=== PATIENT | female | born 1995 | race Caucasian/White ===

== ENCOUNTER 2021-06-04 10:41 | Emergency (ER) | payer OTHER, SELFPAY ==
[2021-06-04 13:33] VITALS: BP 107/70; PULSE 80; RESP 19; TEMP 36.8; O2SAT 98; BMI 20.9
--- NOTE | 2021-06-04 14:06 | HMH.EDUTC ---
[facility] [place] Disposition Clinical Impression: Otitis media Qualifiers: Otitis media type: unspecified Laterality: left Qualified Code(s): H66.92 - Otitis media, unspecified, left ear Disposition: Home, Self-Care Condition on Discharge: Good Instructions: Middle Ear Infection, Sore Throat, DI for Sinusitis Additional Instructions: *Monitor Temp, Over the counter Motrin or Tylenol as directed/as needed Tylenol every 4 hours and Motrin every 6 hours (as long as your family doctor has told you that you can take it) for fever or pain. and straight to ER if unable to lower temp less than 101.0 after medication given *Warm salt water gargles may help to soothe the throat *Throat Lozenges *Warm fluids like tea with honey may help to soothe the throat *Sleep elevated *Humidifier/Vaporizer *Take medication as prescribed Return if needed Follow up IMMEDIATELY for new or worsening symptoms or no Noticeable improvement over the next 48-72 hours. 911 for difficulty breathing or swallowing Prescriptions: Amoxicillin/Potassium Clav [Amox-Clav 875-125 mg Tablet] 1 tab PO BID #20 tab Transmission Status: Pending to [id number] Referrals: Lorna Buchanan [Primary Care Provider] - As needed Time of Disposition: 14:16 Medical Decision Making - Alonso Inquiry Pt receiving controlled substance: No Alonso was queried for this patient: No Vital Signs: 06/04/21 13:33 Temperature 98.2 F Temperature Source Oral Pulse Rate [Left] 80 Respiratory Rate 19 Blood Pressure [Right Arm] 107/70 L Blood Pressure Mean [Right Arm] 82 02 Sat by Pulse Oximetry 98 [facility] HPI - General Stated complaint: HAN, sore throat, congestion, lt ear pain Time Seen by Provider: 06/04/21 14:06 Mode of Arrival: Ambulatory Source of Information: Patient Limitations: No Limitations Description of Symptoms (Recalled from Triage Doc. by RN): pt c/o a cough, sinus congestion, HAN, and pain in her L ear. HEENT Symptoms (Recalled from RN notes): Yes Resp Symptoms (Recalled from RN notes): Yes Skin Symptoms (Recalled from RN notes): No MS Symptoms (Recalled from RN notes): No Functional Status (Recalled from RN notes): wnl - History of Present Illness Provider Complaint: Patient states that she has been having pain in her left ear, cough, and sinus pain and congestion that has got worse over the last few days States that she was up most of the night last night with pain in her left ear and pressure behind her eyes State that tthis morning she was still not feeling well so she came in - Related Data Previous Rx's Medication Instructions Recorded Amoxicillin/Potassium Clav 1 tab PO BID #20 tab 06/04/21 [Amox-Clav 875-125 mg Tablet] Allergies Allergy/AdvReac Type Severity Reaction Status Date / Time No Known Allergies Allergy Verified 06/04/21 13:36 - Worker's Comp Is this a Worker's Comp case?: No [facility] History - Hepatitis A Screen Drug use history?: No High risk sexual behaviors?: No History of sexually transmitted infection?: No Currently employed?: No Childcare worker?: No Do you have indoor plumbing?: Yes Do you have electricity?: Yes Attestation statement:: This patient has been screened for Hepatitis A risk factors. I have reviewed the patient's past medical history: Yes ROS Obtained: Yes All systems reviewed & no additional complaints, Yes Systems reviewed as appropriate & no additional complaints - Constitutional Constitutional: Reports system reviewed and no additional complaints, except as docu, Reports headache(s) - ENT Ears, Nose, Mouth, and Throat: Reports system reviewed and no additional complaints, except as docu, Reports otalgia, Reports sinus pain, Reports sinus pressure - Cardiovascular Cardiovascular: Reports system reviewed and no additional complaints, except as docu - Respiratory Respiratory: Reports system reviewed and no additional complaints, except as docu, Reports cough Physical Exam - G
[2021-06-04 14:29] VITALS: BP 107/70; PULSE 80; RESP 19; TEMP 36.8
== END 2021-06-04 14:31 | disposition home or self-care (01) ==
PROVIDERS: Emergency Provider Nurse Practitioner; PCP Pediatrics
DX: H66.92 Otitis media, unspecified, left ear (principal)
CPT/HCPCS: 99212; G0463

== ENCOUNTER 2021-07-31 10:12 | Emergency (ER) | payer OTHER, SELFPAY ==
[2021-07-31 11:00] VITALS: BP 107/66; PULSE 79; RESP 18; TEMP 36.9; O2SAT 97; BMI 20.1
--- NOTE | 2021-07-31 11:35 | HMH.EDUTC ---
[facility] [place] Disposition Clinical Impression: Sinusitis Qualifiers: Sinusitis location: unspecified location Chronicity: unspecified Qualified Code(s): J32.9 - Chronic sinusitis, unspecified Disposition: Home, Self-Care Condition on Discharge: Good Instructions: Sinusitis Additional Instructions: ? Start antibiotic today. Be sure to complete entire prescription even if feeling better ? Monitor temp. Tylenol every 4 hours as needed and / or ibuprofen every 6 hours as needed ( As long as your primary care physician has told you that it ok to take both. For fever/aches/pains ER if no less than 101 despite Tylenol or Motrin ? Humidifier/vaporizer or hot steamy shower ? Mucinex during the day for your cough and cough suppressant only at night. Be sure to drink lots of water. Insurance may not cover a prescriptions for mucinex. Might be cheaper to get 400mg tablets and take 2 tablet in the morning, mid-day and evening with lots of water. *Tessalon Perles will not cause drowsiness but use at bedtime to help stop cough so that you may get some rest. *Start steroid today. Helps with inflammation therefore, cough and wheezing. Follow directions on the package. Reviewed side effects. Patient reports taking them before. Follow up IMMEDIATELY for new or worsening of symptoms OR no noticeable improvement over the next 48-72 hours. 911 immediately for any life threatening symptoms such as chest pain or difficulty breathing Prescriptions: Benzonatate [Benzonatate 100mg cap] 100 mg PO Q8HP PRN #30 cap PRN Reason: Cough Transmission Status: Pending to [facility] Amoxicillin/Potassium Clav [Amox-Clav 875-125 mg Tablet] 1 tab PO BID #20 tab Transmission Status: Pending to [facility] methylPREDNISolone [Medrol 4mg tab] 4 mg PO DIRECTED #21 tab Transmission Status: Pending to [facility] Referrals: Lorna Buchanan [Primary Care Provider] - As needed Time of Disposition: 11:43 Medical Decision Making - Alonso Inquiry Pt receiving controlled substance: No Alonso was queried for this patient: No Vital Signs: 07/31/21 11:00 Temperature 98.5 F Temperature Source Oral Pulse Rate [Right Brachial] 79 Respiratory Rate 18 Blood Pressure [Right Arm] 107/66 L Blood Pressure Mean [Right Arm] 79 Blood Pressure Source [Right Arm] Automatic Cuff Blood Pressure Position [Right Arm] Sitting 02 Sat by Pulse Oximetry 97 Oxygen Delivery Method Room Air [facility] HPI - General Stated complaint: sore throat, congestion, cough, hoarseness, HAN Time Seen by Provider: 07/31/21 11:35 Mode of Arrival: Ambulatory Source of Information: Patient Limitations: No Limitations Description of Symptoms (Recalled from Triage Doc. by RN): PATIENT C/O HEADACHE, HEAD CONGESTION, COUGH, SORE THROAT AND FATIGUE SINCE THURSDAY HEENT Symptoms (Recalled from RN notes): Yes Resp Symptoms (Recalled from RN notes): Yes Skin Symptoms (Recalled from RN notes): No MS Symptoms (Recalled from RN notes): No Functional Status (Recalled from RN notes): WNL - History of Present Illness Provider Complaint: Patient states that she hasnt felt well for close to a week States that she has been having sinus pain and pressure, cough, sore throat and drainage States that at times she was coughing up some mucous so she came in to get checked - Related Data Previous Rx's Medication Instructions Recorded Amoxicillin/Potassium Clav 1 tab PO BID #20 tab 07/31/21 [Amox-Clav 875-125 mg Tablet] Benzonatate [Benzonatate 100mg 100 mg PO Q8HP PRN #30 cap 07/31/21 cap] methylPREDNISolone [Medrol 4mg 4 mg PO DIRECTED #21 tab 07/31/21 tab] Allergies Allergy/AdvReac Type Severity Reaction Status Date / Time No Known Allergies Allergy Verified 06/04/21 13:36 - Worker's Comp Is this a Worker's Comp case?: No [facility] History - Hepatitis A Screen Attestation statement:: This patient has been screened for Hepatitis A risk factors.
[2021-07-31 11:45] VITALS: BP 107/66; PULSE 79; RESP 18; TEMP 36.9; O2SAT 97
== END 2021-07-31 11:46 | disposition home or self-care (01) ==
PROVIDERS: Emergency Provider Nurse Practitioner; PCP Pediatrics
DX: J32.9 Chronic sinusitis, unspecified (principal); J02.9 Acute pharyngitis, unspecified
CPT/HCPCS: 99212; G0463

== ENCOUNTER 2022-02-04 10:33 | Emergency (ER) | payer OTHER, SELFPAY ==
[2022-02-04 11:30] VITALS: BP 131/74; PULSE 78; RESP 18; TEMP 36.8; O2SAT 98; BMI 21.3
--- NOTE | 2022-02-04 11:56 | EXP.UTC ---
Discharge Plan Disposition Patient Disposition: Home, Self-Care Condition: Good Prescriptions Prescriptions: New benzonatate 100 mg capsule 100 mg PO TID PRN (Reason: cough) Qty: 30 0RF methylprednisolone [Medrol (Gerard)] 4 mg tablets,dose pack See Rx Instructions .Route .COMPLEX 6 Days Qty: 21 0RF Rx Instructions: taper pack; doxycycline hyclate 100 mg capsule 100 mg PO BID Qty: 20 0RF No Action methylprednisolone 4 MG tablet 4 mg PO DIRECTED Qty: 21 0RF Rx Instructions: Take as directed on package instructions benzonatate 100 MG capsule 100 mg PO Q8HP PRN (Reason: Cough) Qty: 30 0RF amoxicillin-pot clavulanate 1 EACH tablet 1 tab PO BID Qty: 20 0RF Referrals Follow up/Referrals: Lorna Buchanan [Primary Care Provider] - See instructions Activity Restrictions/Add. Instructions Additional Instructions/Restrictions: Start antibiotic today. Be sure to complete entire prescription even if feeling better Monitor temp. Tylenol every 4 hours as needed and / or ibuprofen every 6 hours as needed ( As long as your primary care physician has told you that it ok to take both. For fever/aches/pains ER if no less than 101 despite Tylenol or Motrin Humidifier/vaporizer or hot steamy shower *Tessalon Perles will not cause drowsiness but use at bedtime to help stop cough so that you may get some rest. *Start steroid today. Helps with inflammation therefore, cough and wheezing. Follow directions on the package. Reviewed side effects. Patient reports taking them before. Follow up IMMEDIATELY for new or worsening of symptoms OR no noticeable improvement over the next 48-72 hours. 911 immediately for any life threatening symptoms such as chest pain or difficulty breathing Clinical Impressions Clinical Impression: Sinusitis, Bronchitis Instructions Patient Instructions: DI for Sinusitis, Sinusitis, Acute Bronchitis Discharge ED Provider: Nikki Wallace [facility] General Stated complaint: possible sinus infection Mode of Arrival: Ambulatory Source of Information: Patient Limitations: No Limitations Time Seen by Provider: 02/04/22 11:56 Description of Symptoms (Recalled from Triage Doc. by RN): PATIENT C/O POSSIBLE SINUS INFECTION X 4 DAYS. SHE REPORTS SHE RECENTLY FINISHED AUGMENTIN ON 01/30 HEENT Symptoms (Recalled from RN notes): Yes Resp Symptoms (Recalled from RN notes): No Skin Symptoms (Recalled from RN notes): No MS Symptoms (Recalled from RN notes): No Functional Status (Recalled from RN notes): WNL History of Present Illness Provider Complaint: Patient states that she was seen and treated the the first part of the month for sinus infection with Augmentin but doesnt think it completely cleared her sinus infection States that about 4 days ago she started again with sinus pain and pressure, drainage in the back of her throat and cough that at times she is able to cough up mucous States that if she doesnt get her sinus infection under control she is worried it will move into her chest Related Data Previous Rx's Medication Instructions Recorded amoxicillin 875 mg-potassium 1 tab PO BID #20 tabs 07/31/21 clavulanate 125 mg tablet benzonatate 100 mg capsule 100 mg PO Q8HP PRN Cough #30 caps 07/31/21 methylprednisolone 4 mg tablet 4 mg PO DIRECTED #21 tabs 07/31/21 benzonatate 100 mg capsule 100 mg PO TID PRN cough #30 caps 02/04/22 doxycycline hyclate 100 mg capsule 100 mg PO BID #20 caps 02/04/22 methylprednisolone 4 mg tablets in See Rx Instructions .Route 02/04/22 a dose pack (Medrol (Gerard)) .COMPLEX 6 days #21 tabs Allergies Allergy/AdvReac Type Severity Reaction Status Date / Time No Known Allergies Allergy Verified 06/04/21 13:36 Worker's Comp Is this a Worker's Comp case?: No [facility] 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 (Updated 02/04/22 @ 12:04 by Nikki Wallace APRN) Anxiety Depression Migraine Urinary tract infection
[2022-02-04 12:05] VITALS: BP 131/74; PULSE 78; RESP 18; TEMP 36.8; O2SAT 98
== END 2022-02-04 12:08 | disposition home or self-care (01) ==
PROVIDERS: Emergency Provider Nurse Practitioner; PCP Pediatrics
DX: J01.90 Acute sinusitis, unspecified (principal); R50.9 Fever, unspecified; R09.89 Other specified symptoms and signs involving the circulatory and respiratory systems; R05.9 Cough, unspecified; G43.909 Migraine, unspecified, not intractable, without status migrainosus; F32.A Depression, unspecified; F41.9 Anxiety disorder, unspecified; Z79.52 Long term (current) use of systemic steroids; Z87.440 Personal history of urinary (tract) infections
CPT/HCPCS: 99212; G0463

== ENCOUNTER 2022-05-14 08:41 | Emergency (ER) | payer OTHER, SELFPAY ==
--- NOTE | 2022-05-14 09:07 | EXP.UTC ---
Discharge Plan Disposition Patient Disposition: Home, Self-Care Condition: Good Prescriptions Prescriptions: New rgwjyhrxzxrvzvm-uwjenvaen-CS [Bromfed DM] 2-30-10 mg/5 mL Syrup 5 ml PO Q6H PRN (Reason: Cough) Qty: 240 0RF amoxicillin-pot clavulanate 875-125 mg Tablet 1 tab PO Q12H Qty: 20 0RF methylprednisolone 4 mg Tablets,Dose Pack 4 mg PO DIRECTED Qty: 21 0RF No Action rizatriptan 10 mg tablet 25 mg PO NEEDED PRN (Reason: migraines) Label Comments: TAKE 1 TABLET BY MOUTH ONCE DAILY NEEDED FOR HEADACHE FOR UP TO 1 DOSE. DO NOT EXCEED 3 TABLETS IN 24 HOURS. hydroxyzine HCl 25 mg Tablet 25 mg PO NEEDED PRN (Reason: panic attacks) escitalopram oxalate 10 mg tablet 10 mg PO DAILY Label Comments: TAKE 1 & 1/2 (ONE & ONE-HALF) TABLETS BY MOUTH ONCE DAILY Cimzia 400 mg/2 mL (200 mg/mL x 2) syringe kit 800 mg SQ MONTHLY Referrals Follow up/Referrals: Lorna Buchanan [Primary Care Provider] - See instructions Activity Restrictions/Add. Instructions Additional Instructions/Restrictions: Drink plenty of fluids. Take tylenol or ibuprofen for pain or fever. Take the medications as directed. Follow up with your regular doctor. GO TO THE ER FOR ANY WORSENING SYMPTOMS Clinical Impressions Clinical Impression: Sinusitis, Bronchitis Instructions Patient Instructions: Sinusitis, DI for Sinusitis Discharge ED Provider: Murphy Davalos [facility] [place] HPI General Stated complaint: sinus congestion, sore throat, body aches Time Seen by Provider: 05/14/22 09:07 History of Present Illness Provider Complaint: She states that for the past 2 days she has had sore throat, sinus congestion, cough and chest congestion. Related Data Home Medications Medication Instructions Recorded Confirmed certolizumab pegol 400 mg/2 mL 800 mg SQ MONTHLY psoriatic 05/14/22 05/14/22 (200 mg/mL x2) subcutaneous arthritis syringe kit (Cimzia) escitalopram oxalate 10 mg tablet 10 mg PO DAILY Depression 05/14/22 05/14/22 hydroxyzine HCl 25 mg tablet 25 mg PO NEEDED PRN panic 05/14/22 05/14/22 attacks rizatriptan 10 mg tablet 25 mg PO NEEDED PRN migraines 05/14/22 05/14/22 Previous Rx's Medication Instructions Recorded amoxicillin 875 mg-potassium 1 tab PO Q12H #20 tabs 05/14/22 clavulanate 125 mg tablet htaihzdlsfnllet-srzgevgtmwgsvgy-YT 5 ml PO Q6H PRN Cough #240 mL 05/14/22 2 mg-30 mg-10 mg/5 mL oral syrup (Bromfed DM) methylprednisolone 4 mg tablets in 4 mg PO DIRECTED #21 tabs 05/14/22 a dose pack Allergies Allergy/AdvReac Type Severity Reaction Status Date / Time No Known Allergies Allergy Verified 05/14/22 09:25 [facility] Disclaimer: The information contained in this section may have been updated after the patient was seen, as this information can be updated by other users. 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 Anxiety Depression Migraine Urinary tract infection Surgical History History of appendectomy History of wisdom tooth extraction Social History Smoking Status: Unknown if ever smoked alcohol intake: never current occupational status: other Travel in the last 8 weeks: None ROS Obtained: Yes All systems reviewed & no additional complaints except as documented Constitutional Constitutional: Reports poor appetite Eyes Eyes: Reports system reviewed and no additional complaints, except as documented ENT Ears, Nose, Mouth, and Throat: Reports as per HPI Cardiovascular Cardiovascular: Reports system reviewed and no additional complaints, except as documented and Denies chest pain Respiratory Respiratory: Denies shortness of breath, Denies chest congestion, Reports cough, Denies stridor and Denies wheezing Gastrointestinal Gastrointestingal: Reports system reviewed and no a
[2022-05-14 09:10] VITALS: BP 108/65; PULSE 83; RESP 20; TEMP 37.1; O2SAT 96; BMI 20.9
[2022-05-14 09:18] LABS: UTC Influenza A Antigen Negative (Negative); UTC Strep Screen (Rapid) Negative (Negative)
[2022-05-14 09:19] LABS: UTC Influenza B Antigen Negative (Negative)
[2022-05-14 09:47] VITALS: BP 108/65; PULSE 83; RESP 20; TEMP 37.1; O2SAT 96
== END 2022-05-14 09:40 | disposition home or self-care (01) ==
PROVIDERS: Emergency Provider Nurse Practitioner Family; PCP Pediatrics
DX: J32.9 Chronic sinusitis, unspecified (principal); J40 Bronchitis, not specified as acute or chronic
CPT/HCPCS: 87804; 87880; 99212; 99214; G0463

== ENCOUNTER 2022-05-29 10:48 | Emergency (ER) | payer OTHER, SELFPAY ==
--- NOTE | 2022-05-29 11:22 | EXP.UTC ---
Discharge Plan Disposition Patient Disposition: Home, Self-Care Condition: Good Prescriptions Prescriptions: No Action rizatriptan 10 mg tablet 25 mg PO NEEDED PRN (Reason: migraines) Label Comments: TAKE 1 TABLET BY MOUTH ONCE DAILY NEEDED FOR HEADACHE FOR UP TO 1 DOSE. DO NOT EXCEED 3 TABLETS IN 24 HOURS. hydroxyzine HCl 25 mg Tablet 25 mg PO NEEDED PRN (Reason: panic attacks) escitalopram oxalate 10 mg tablet 10 mg PO DAILY Label Comments: TAKE 1 & 1/2 (ONE & ONE-HALF) TABLETS BY MOUTH ONCE DAILY Cimzia 400 mg/2 mL (200 mg/mL x 2) syringe kit 800 mg SQ MONTHLY Referrals Follow up/Referrals: Lorna Buchanan [Primary Care Provider] - See instructions Activity Restrictions/Add. Instructions Additional Instructions/Restrictions: Go home and rest. It would be best if you rested tomorrow too. Continue your normal medications. Follow up with your regular doctor. GO TO THE ER FOR ANY WORSENING SYMPTOMS OR CONCERN, ESPECIALLY BOWEL OR BLADDER ISSUES, SADDLE AREA NUMBNESS, FEVER, ETC Clinical Impressions Clinical Impression: Migraine with aura Instructions Patient Instructions: Migraine -- Adult, DI for Migraine, Promethazine, Methylprednisolone Injection, Ketorolac Injection Discharge ED Provider: Murphy Davalos [facility] General Stated complaint: Headache, nausea Time Seen by Provider: 05/29/22 11:19 History of Present Illness Provider Complaint: She c/o migraine headache for the past 3 days. She has a history of migraines with aura since she was a child. She usually takes Rizatriptan and it relieves her symptom, but she has taken3 doses of that since her headache began and it has only helped temporarily. Related Data Home Medications Medication Instructions Recorded Confirmed certolizumab pegol 400 mg/2 mL 800 mg SQ MONTHLY psoriatic 05/14/22 05/14/22 (200 mg/mL x2) subcutaneous arthritis syringe kit (Cimzia) escitalopram oxalate 10 mg tablet 10 mg PO DAILY Depression 05/14/22 05/14/22 hydroxyzine HCl 25 mg tablet 25 mg PO NEEDED PRN panic 05/14/22 05/14/22 attacks rizatriptan 10 mg tablet 25 mg PO NEEDED PRN migraines 05/14/22 05/14/22 Allergies Allergy/AdvReac Type Severity Reaction Status Date / Time No Known Allergies Allergy Verified 05/29/22 11:35 [facility] Disclaimer: The information contained in this section may have been updated after the patient was seen, as this information can be updated by other users. 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 Anxiety Depression Migraine Urinary tract infection Surgical History History of appendectomy History of wisdom tooth extraction Social History Smoking Status: Unknown if ever smoked alcohol intake: never current occupational status: other Travel in the last 8 weeks: None ROS Obtained: Yes All systems reviewed & no additional complaints except as documented Constitutional Constitutional: Denies chills and Denies fever(s) Eyes Eyes: Denies eye discharge ENT Ears, Nose, Mouth, and Throat: Denies dizziness, Denies otalgia and Denies sore throat Cardiovascular Cardiovascular: Denies chest pain Respiratory Respiratory: Denies shortness of breath, Denies chest congestion, Denies cough, Denies stridor and Denies wheezing Gastrointestinal Gastrointestingal: Denies nausea or vomiting Musculoskeletal Musculoskeletal: Reports system reviewed and no additional complaints, except as documented and Denies arthralgias Integumentary/Breasts Skin/Breast: Denies rash Neurologic Neurologic: Reports as per HPI, Denies dizziness and Denies paresthesias Allergic/Immunologic Allergic/Immunologic: Denies wheezing Physical Exam General General appearance: alert and in no apparent distress Head Head exam: atraumatic, normocephalic and nor
[2022-05-29 11:30] VITALS: BP 125/77; PULSE 89; RESP 20; TEMP 36.8; O2SAT 98; BMI 21.7
[2022-05-29 12:37] VITALS: BP 125/77; PULSE 89; RESP 20; TEMP 36.8; O2SAT 98
--- NOTE | 2022-05-29 12:38 | PC.NURSE ---
Pt was d/c with father in law to transport home
== END 2022-05-29 12:37 | disposition home or self-care (01) ==
PROVIDERS: Emergency Provider Nurse Practitioner Family; PCP Pediatrics
DX: G43.109 Migraine with aura, not intractable, without status migrainosus (principal); R11.0 Nausea
CPT/HCPCS: 99212; 99213; G0463

== ENCOUNTER 2022-08-24 10:59 | Emergency (ER) | payer OTHER, SELFPAY ==
[2022-08-24 11:15] VITALS: BP 107/63; PULSE 81; RESP 22; TEMP 36.8; O2SAT 98; BMI 22.7
--- NOTE | 2022-08-24 11:15 | XR_ITS ---
PROCEDURE INFORMATION: Exam: XR Right Foot Exam date and time: 08/24/2022 11:11 AM Age: 26 years old Clinical indication: Swelling or effusion of joint; Other: Great toe; Additional info: Pain and swelling in RT great toe TECHNIQUE: Imaging protocol: Radiologic exam of the right foot. Views: 3 or more views. Total images: 3 COMPARISON: No relevant prior studies available. FINDINGS: Bones/joints: No evidence of acute fracture or dislocation. Soft tissues: Soft tissues are within normal limits. IMPRESSION: No evidence of acute fracture or dislocation.
--- NOTE | 2022-08-24 12:07 | EXP.UTC ---
Discharge Plan Disposition Patient Disposition: Home, Self-Care Condition: Good Prescriptions Prescriptions: No Action rizatriptan 10 mg tablet 25 mg PO NEEDED PRN (Reason: migraines) Label Comments: TAKE 1 TABLET BY MOUTH ONCE DAILY NEEDED FOR HEADACHE FOR UP TO 1 DOSE. DO NOT EXCEED 3 TABLETS IN 24 HOURS. hydroxyzine HCl 25 mg Tablet 25 mg PO NEEDED PRN (Reason: panic attacks) escitalopram oxalate 10 mg tablet 10 mg PO DAILY Label Comments: TAKE 1 & 1/2 (ONE & ONE-HALF) TABLETS BY MOUTH ONCE DAILY Cimzia 400 mg/2 mL (200 mg/mL x 2) syringe kit 800 mg SQ MONTHLY Referrals Follow up/Referrals: Lorna Buchanan [Primary Care Provider] - See instructions Activity Restrictions/Add. Instructions Additional Instructions/Restrictions: RETURN FOR ANY NEW OR WORSENING SYMPTOMS FOLLOW U WITH DR BURRIS AT 11 AM TOMORROW Clinical Impressions Clinical Impression: Great toe pain Instructions Patient Instructions: DI for Foot Pain Discharge ED Provider: Liz ([facility])[place] [facility] [place] H[place] General Stated complaint: RT foot big toe pain Mode of Arrival: Ambulatory Source of Information: Patient Limitations: No Limitations Time Seen by Provider: 08/24/22 12:07 Description of Symptoms (Recalled from Triage Doc. by RN): PATIENT C/O PAIN, SWELLING AND BRUISING TO RIGHT BIG TOE THAT STARTED THURSDAY. NO KNOWN INJURY. SHE STATES HER TOE DOES NOT HURT WITH MOVEMENT, BUT IT HURTS WHEN PRESSURE IS APPLIED TO IT HEENT Symptoms (Recalled from RN notes): No Resp Symptoms (Recalled from RN notes): No Skin Symptoms (Recalled from RN notes): No MS Symptoms (Recalled from RN notes): Yes Functional Status (Recalled from RN notes): WNL History of Present Illness Provider Complaint: 26 YR OLD FEMALE PRESENTS WITH C/O PAIN, SWELLING AND BRUISING TO RIGHT BIG TOE THAT STARTED THURSDAY. NO KNOWN INJURY. SHE STATES HER TOE DOES NOT HURT WITH MOVEMENT, BUT IT HURTS WHEN PRESSURE IS APPLIED TO IT. Related Data Home Medications Medication Instructions Recorded Confirmed certolizumab pegol 400 mg/2 mL 800 mg SQ MONTHLY psoriatic 05/14/22 05/14/22 (200 mg/mL x2) subcutaneous arthritis syringe kit (Cimzia) escitalopram oxalate 10 mg tablet 10 mg PO DAILY Depression 05/14/22 05/14/22 hydroxyzine HCl 25 mg tablet 25 mg PO NEEDED PRN panic 05/14/22 05/14/22 attacks rizatriptan 10 mg tablet 25 mg PO NEEDED PRN migraines 05/14/22 05/14/22 Allergies Allergy/AdvReac Type Severity Reaction Status Date / Time No Known Allergies Allergy Verified 05/29/22 11:35 Worker's Comp Is this a Worker's Comp case?: No [facility] Disclaimer: The information contained in this section may have been updated after the patient was seen, as this information can be updated by other users. 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) Smoking Status: Unknown if ever smoked alcohol intake: never current occupational status: other Travel in the last 8 weeks: None ROS Obtained: Yes All systems reviewed & no additional complaints except as documented Constitutional Constitutional: Reports system reviewed and no additional complaints, except as documented Eyes Eyes: Reports system reviewed and no additional complaints, except as documented ENT Ears, Nose, Mouth, and Throat: Reports system reviewed and no additional complaints, except as documented Cardiovascular Cardiovascular: Reports system reviewed and no additional complaints, except as documented Respiratory Respiratory: Reports system reviewed and no additional complaints, except as documented Gastrointestinal Gastrointestingal: Reports system r
[2022-08-24 12:08] VITALS: BP 107/63; PULSE 81; RESP 22; TEMP 36.8; O2SAT 98
== END 2022-08-24 12:17 | disposition home or self-care (01) ==
PROVIDERS: Emergency Provider Nurse Practitioner Family; PCP Pediatrics
DX: M79.674 Pain in right toe(s) (principal); F41.9 Anxiety disorder, unspecified; F32.A Depression, unspecified
CPT/HCPCS: 73630; 99212; 99214; G0463

== ENCOUNTER → 2022-08-25 11:34 | Outpatient (CLI) | payer OTHER, SELFPAY ==
[2022-08-25 12:21] LABS: Basophils % 0.6 % (0.1-2.0); Eosinophils # 0.2 K/mm3 (0.0-0.4); Eosinophils % 3.8 % (0.1-12.0); Hematocrit 37.7 % (37.0-47.0); Hemoglobin 11.8 g/dL (12.2-16.2); Lymphocytes # 1.4 K/mm3 (0.7-4.5); Lymphocytes % 24.9 % (10-50); Mean Corpuscular HGB Conc 31.3 g/dL (31.8-35.4); Mean Corpuscular Hemoglobin 25.3 pg (27.0-31.2); Mean Corpuscular Volume 80.7 fl (81-99); Mean Platelet Volume 8.4 fl (7.4-10.4); Monocytes # 0.3 K/mm3 (0.1-1.0); Monocytes % 5.6 % (1.7-9.3); Neutrophils # 3.7 K/mm3 (1.8-7.8); Neutrophils % 65.1 % (37.0-80.0); Platelet Count 243 K/mm3 (142-424); Red Blood Count 4.67 M/mm3 (4.20-5.40); Red Cell Distribution Width 15.4 % (11.5-17.5); White Blood Count 5.7 K/mm3 (4.8-10.8)
[2022-08-25 12:35] LABS: Chloride 103 mmol/L (98-107)
[2022-08-25 12:36] LABS: Sodium 140 mmol/L (136-145)
[2022-08-25 12:38] LABS: Alanine Aminotransferase 20 U/L (12-78); Aspartate Amino Transferase 29 U/L (14-36); Bilirubin,Unconjugated 0.3 mg/dL (0.0-1.1); Blood Urea Nitrogen 9 mg/dl (7-17); Estimated Glomerular Filt Rate 149 ml/min (>60); GFR (African American) 180 ML/MIN (>60)
[2022-08-25 12:39] LABS: Albumin Level 4.1 g/dl (3.5-5.0); Alkaline Phosphatase 56 U/L (38-126); Bilirubin,Indirect 0.2 mg/dL (0.0-0.9); Bilirubin,Total 0.2 mg/dl (0.2-1.3); Calcium 8.9 mg/dl (8.4-10.2); Carbon Dioxide 28 mmol/L (22.0-30.0); Chol/HDL Ratio 2.2 (1-3.5); Cholesterol 154 mg/dl (140-200); Glucose 94 mg/dl (74-100); HDL Cholesterol 69 mg/dl (40-60); Total Protein,Serum 7.2 g/dl (6.3-8.2); Triglycerides 49 mg/dl (30-150); VLDL Cholesterol 10 mg/dL (0-40)
[2022-08-25 12:42] LABS: Activated Partial Thrombo Time 27.3 seconds (22.8-30.6); INR 0.97 (0.9-1.1); Prothrombin Time 10.5 seconds (10.1-12.5)
[2022-08-25 12:46] LABS: C-Reactive Protein 0.7 mg/L (0-4)
[2022-08-25 12:51] LABS: Direct LDL Cholesterol 70.41 mg/dL (100-129)
--- NOTE | 2022-08-25 12:56 | CA_ITS ---
FINAL REPORT CLINICAL HISTORY: discoloration of right great toe, no injury FINDINGS: Color Doppler, duplex Doppler and compression sonography of the bilateral lower extremities was performed. There is no evidence of deep venous thrombosis from the level of the groin to the calf. The deep veins are patent and compressible. IMPRESSION: No evidence of deep venous thrombosis bilateral lower extremities. Reviewed, Interpreted and Dictated by Rober Lindquist III, MD Transcribed by Ele Velázquez Authenticated and [facility]
[2022-08-25 12:57] LABS: Free T4 (Free Thyroxine) 0.87 ng/dl (0.78-2.19)
[2022-08-25 13:00] LABS: Erythrocyte Sedimentation Rate 11 mm/hr (0-20)
[2022-08-25 13:03] LABS: HCG,Quantitative < 2 mIU/ml (0-5.42)
[2022-08-25 13:12] LABS: Thyroid Stimulating Hormone 0.53 uIU/mL (0.465-4.68)
[2022-08-25 13:24] LABS: Uric Acid 4.2 mg/dl (2.5-6.2)
[2022-08-26 09:04] LABS: RA Latex Turbid. <10.0 IU/mL (<14.0)
[2022-09-01 20:45] LABS: 1,25 Dihydroxy Vitamin D 55 pg/mL (.); 1,25-Dihydroxy, Vitamin D-2 <10 pg/mL (.); 1,25-Dihydroxy, Vitamin D-3 52 pg/mL (.)
[2022-09-07 01:42] LABS: APTT 27.3 sec (.); Anti-Cardiolipin Antibody IgG <10 GPL (.); Anti-Cardiolipin Antibody IgM 10 MPL (.); Beta-2 Glycoprotein I Ab, IgA <10 SAU (.); Beta-2 Glycoprotein I Ab, IgG <10 SGU (.); Beta-2 Glycoprotein I Ab, IgM <10 SMU (.); Hexagonal Phase Phospholipid 9 sec (.); Prothrombin Time 10.5 sec (.); Thrombin Time 16.8 sec (.)
[2022-10-01 00:16] LABS: Antinuclear Antibodies, IFA Positive
== END ==
PROVIDERS: Internal Medicine; PCP Pediatrics; Visit Provider Physician Assistant
DX: R06.00 Dyspnea, unspecified (principal); M79.674 Pain in right toe(s); I77.6 Arteritis, unspecified; L81.9 Disorder of pigmentation, unspecified; I63.9 Cerebral infarction, unspecified
CPT/HCPCS: 80048; 80061; 80076; 82652; 84439; 84443; 84550; 84702; 85025; 85597; 85598; 85610; 85613; 85651; 85670; 85730; 86038; 86140; 86146; 86147; 86431; 93306; 93970

== ENCOUNTER 2023-01-25 09:29 | Emergency (ER) | payer OTHER, SELFPAY ==
[2023-01-25 09:40] VITALS: BP 118/72; PULSE 75; RESP 18; TEMP 36.8; O2SAT 100; BMI 23.7
[2023-01-25 10:10] VITALS: BP 118/72; PULSE 75; RESP 18; TEMP 36.8; O2SAT 100
--- NOTE | 2023-01-25 10:13 | EXP.UTC ---
Discharge Plan Disposition Patient Disposition: Still a Patient Condition: Good Prescriptions Prescriptions: No Action Cimzia 400 mg/2 mL (200 mg/mL x 2) syringe kit 800 mg SQ MONTHLY cetirizine [Zyrtec] 10 mg Tablet 10 mg PO DAILY cod liver oil Capsule 2 cap PO DAILY inositol 500 mg Tablet 3,000 mg PO BID vitamin K2 100 mcg Capsule 100 mcg PO DAILY wfgoohz-mftd-oethl-oreg-capryl 100 mg-150 mg- 50 mg-150 mg Capsule 1 cap PO DAILY zinc citrate 11 mg Tablet,Chewable 33 mg PO DAILY Referrals Follow up/Referrals: Lorna Buchanan [Primary Care Provider] - See instructions Activity Restrictions/Add. Instructions Additional Instructions/Restrictions: Take medication as prescribed FOllow up with your Family Doctor if needed or no improvement Return if needed Straight to ER if any life threatening symptoms Instructions Patient Instructions: DI for Sinusitis, Sinusitis Discharge ED Provider: Nikki Wallace [facility] HPI General Stated complaint: headache,sore throat,sinus congestion Mode of Arrival: Ambulatory Source of Information: Patient Limitations: No Limitations Time Seen by Provider: 01/25/23 10:13 Description of Symptoms (Recalled from Triage Doc. by RN): PATIENT C/O SINUS CONGESTION, SORE THROAT AND HEADACHE SINCE YESTERDAY HEENT Symptoms (Recalled from RN notes): Yes Resp Symptoms (Recalled from RN notes): No Skin Symptoms (Recalled from RN notes): No MS Symptoms (Recalled from RN notes): No Functional Status (Recalled from RN notes): WNL History of Present Illness Provider Complaint: Patient states that she is immunocompromised States that she gets a sinus infection about this time every year States that she has been having some sinus pain and pressure that has got worse over the last couple of days So she wanted to come in and get ahead of it before it got too bad Related Data Home Medications Medication Instructions Recorded Confirmed certolizumab pegol 400 mg/2 mL 800 mg SQ MONTHLY psoriatic 05/14/22 01/25/23 (200 mg/mL x2) subcutaneous arthritis syringe kit (Cimzia) cetirizine 10 mg tablet (Zyrtec) 10 mg PO DAILY 01/25/23 01/25/23 cod liver oil 2 cap PO DAILY 01/25/23 01/25/23 inositol 500 mg tablet 3,000 mg PO BID Anxiety 01/25/23 01/25/23 tumeric 100 mg-zander 150 mg-olive 1 cap PO DAILY 01/25/23 01/25/23 50 mg-oreg 150 mg-caprylate capsule vitamin K2 100 mcg capsule 100 mcg PO DAILY 01/25/23 01/25/23 zinc citrate 11 mg chewable tablet 33 mg PO DAILY 01/25/23 01/25/23 Allergies Allergy/AdvReac Type Severity Reaction Status Date / Time No Known Allergies Allergy Verified 08/25/22 10:54 Worker's Comp Is this a Worker's Comp case?: No [facility] Disclaimer: The information contained in this section may have been updated after the patient was seen, as this information can be updated by other users. 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 Anxiety Depression Migraine Urinary tract infection Surgical History History of appendectomy History of wisdom tooth extraction Social History Smoking Status: Unknown if ever smoked alcohol intake: never current occupational status: other Travel in the last 8 weeks: None ROS Obtained: Yes All systems reviewed & no additional complaints except as documented and Yes Systems reviewed as appropriate & no additional complaints except as documented Constitutional Constitutional: Reports system reviewed and no additional complaints, except as documented and Reports as per HPI ENT Ears, Nose, Mouth, and Throat: Reports system reviewed and no additional complaints, except as documented, Reports as per HPI, Reports sinus pain and Reports sinus pressure Cardiovascular Cardiovascular: Reports system reviewed and no additional complaints, except as documented and Reports as pe
== END 2023-01-25 10:33 | disposition still patient (30) ==
PROVIDERS: Emergency Provider Nurse Practitioner; PCP Pediatrics
DX: J01.90 Acute sinusitis, unspecified (principal); R51.9 Headache, unspecified; R07.0 Pain in throat; R09.81 Nasal congestion; D84.89 Other immunodeficiencies; L40.50 Arthropathic psoriasis, unspecified
CPT/HCPCS: 99212; 99214; G0463

== ENCOUNTER 2023-08-30 14:17 | Emergency (ER) | payer BC, SELFPAY ==
[2023-08-30 14:25] VITALS: BP 141/89; PULSE 85; RESP 19; TEMP 36.4; O2SAT 99; BMI 22.8
--- NOTE | 2023-08-30 14:28 | ED_ITS ---
Discharge Plan Disposition Patient Disposition: Home, Self-Care Condition: Good Prescriptions Prescriptions: New amoxicillin 875 mg tablet 875 mg PO Q12H Qty: 20 0RF jhlpdeoxysaylbk-usiimvjmz-OP [Bromfed DM] 2-30-10 mg/5 mL Syrup 5 ml PO Q6H PRN (Reason: Cough) Qty: 240 0RF methylprednisolone 4 mg Tablets,Dose Pack 4 mg PO DIRECTED 6 Days Qty: 21 0RF Rx Instructions: Take 1 pack as directed for 6 days No Action cetirizine [Zyrtec] 10 mg Tablet 10 mg PO DAILY cod liver oil Capsule 2 cap PO DAILY inositol 500 mg Tablet 3,000 mg PO BID vitamin K2 100 mcg Capsule 100 mcg PO DAILY mztgfksa-pwzo-bbshg-oreg-capry 100 mg-150 mg- 50 mg-150 mg Capsule 1 cap PO DAILY Referrals Follow up/Referrals: Provider,Referral, [Primary Care Provider] - See instructions Activity Restrictions/Add. Instructions Additional Instructions/Restrictions: Drink plenty of fluids. Take tylenol or ibuprofen for pain or fever. Take the medications as directed. Use the ear drops that you were previously prescribed as you were directed. Follow up with your regular doctor. GO TO THE ER FOR ANY WORSENING SYMPTOMS Clinical Impressions Clinical Impression: Sinusitis, Bilateral impacted cerumen Otitis media Qualifiers: Otitis media type: unspecified Laterality: left Qualified Code(s): H66.92 - Otitis media, unspecified, left ear Instructions Patient Instructions: DI for Cerumen Impaction, Sinusitis, DI for Sinusitis Discharge ED Provider: Murphy Davalos [facility] General Stated complaint: congestion, headache Time Seen by Provider: 08/30/23 14:28 History of Present Illness Provider Complaint: She states that for the past 5 days she has had sinus congestion, productive cough, and a sore throat. She has also had bilateral ear fullness and decreased hearing. [facility] and was told she had cerumen impactions in both ears. She was prescribed an ear drop. She states that the ear drops are not helping. Related Data Home Medications Medication Instructions Recorded Confirmed cetirizine 10 mg tablet (Zyrtec) 10 mg PO DAILY 01/25/23 08/30/23 cod liver oil 2 cap PO DAILY 01/25/23 08/30/23 inositol 500 mg tablet 3,000 mg PO BID Anxiety 01/25/23 08/30/23 turmeric 100 mg-zander 150 1 cap PO DAILY 01/25/23 08/30/23 mg-olive 50 mg-oreg 150 mg-capryl capsule vitamin K2 100 mcg capsule 100 mcg PO DAILY 01/25/23 08/30/23 Previous Rx's Medication Instructions Recorded amoxicillin 875 mg tablet 875 mg PO Q12H #20 tabs 08/30/23 donksewknnmwchd-kuznvqjrucstftg-MY 5 ml PO Q6H PRN Cough #240 mL 08/30/23 2 mg-30 mg-10 mg/5 mL oral syrup (Bromfed DM) methylprednisolone 4 mg tablets in 4 mg PO DIRECTED 6 days #21 tabs 08/30/23 a dose pack Allergies Allergy/AdvReac Type Severity Reaction Status Date / Time No Known Allergies Allergy Verified 08/25/22 10:54 [facility] Disclaimer: The information contained in this section may have been updated after the patient was seen, as this information can be updated by other users. 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 Anxiety Depression Migraine Urinary tract infection Surgical History History of appendectomy History of wisdom tooth extraction Social History Smoking Status: Unknown if ever smoked alcohol intake: never current occupational status: other Travel in the last 8 weeks: None ROS Obtained: Yes All systems reviewed & no additional complaints except as documented Constitutional Constitutional: Reports poor appetite Eyes Eyes: Reports system reviewed and no additional complaints, except as documented ENT Ears, Nose, Mouth, and Throat: Reports as per HPI Cardiovascular Cardiovascular: Reports system reviewed and no additional complaints, except as documented and Denies chest pain Respiratory Respiratory: Denies shortness of breath, Denies chest congestion, Reports cough, Denies stridor and Denies wheezing Gastrointestinal Gastrointestingal: Reports system reviewed and no additional complaints, except as documented; Denies abdominal pain, diarrhea or vomiting Musculoskeletal Musculoskeletal: Reports system reviewed and no additional complaints, except as documented and Denies arthralgias Integumentary/Breasts Skin/Breast: Reports system reviewed and no additional complaints, except as documented and Denies rash Neurologic Neurologic: Denies paresthesias Allergic/Immunologic Allergic/Immunologic: Denies wheezing Physical Exam General General appearance: alert and in no apparent distress Eye Eye exam: Present normal appearance, PERRL and EOMI ENT ENT exam: Present mucous membranes moist and normal external ear exam Expanded ENT Exam External ear exam: Present normal external inspection TM/Canal exam: Bilateral TM: cerumen impaction Nose exam: Absent sinus tenderness Nasal speculum exam: Bilateral: normal Mouth exam: Present normal external inspection; Absent drooling Teeth exam: Present normal inspection Throat exam: Present tonsillar erythema and tonsillomegaly Neck Neck exam: Present normal inspection, full ROM and trachea midline; Absent tenderness, lymphadenopathy or thyromegaly Chest Chest inspection: Present normal inspection and symmetric chest wall rise; Absent tenderness or rash Respiratory Respiratory exam: Present normal lung sounds bilaterally; Absent respiratory distress, wheezes, stridor or accessory muscle use Cardiovascular Cardiovascular exam: Present regular rate, normal rhythm and normal heart sounds Abdominal Exam Abdominal exam: Present soft; Absent distention, tenderness, guarding, rebound or rigidity Extremities Exam Extremities exam: Present normal inspection, full ROM and normal capillary refill; Absent tenderness or calf tenderness Back Exam Back exam: Present normal inspection and full ROM; Absent tenderness Neurological Exam Neurological exam: Present alert and oriented X3 Psychiatric Psychiatric exam: Present normal affect and normal mood Skin Skin exam: Present warm, dry, intact and normal color Lymphatic Lymphatic Findings: no adenopathy Medical Decision Making Medical Records Medical records reviewed: No I reviewed the patient's medical records. [place] Inquiry Pt receiving controlled substance: No Procedures Risk/Benefits of Procedure(s) Were Explained: Yes Ear Wax Removal Both Ears: Results: Re-examined: cerumen removed completely TM Examination: TM(s) intact, normal appearance Ear Canal Exam: atraumatic Patient Tolerated Procedure: well and no complications Complications: no problems Technique: ear canal irrigated Additional Comments: She tolerated this well. cerumen impactions were completely removed from both ear canals. Her bilateral tm's are intact after the procedure.
[2023-08-30 14:53] VITALS: BP 141/89; PULSE 85; RESP 19; TEMP 36.4; O2SAT 99
== END 2023-08-30 14:56 | disposition home or self-care (01) ==
PROVIDERS: Emergency Provider Nurse Practitioner Family
DX: H66.92 Otitis media, unspecified, left ear (principal); J01.90 Acute sinusitis, unspecified; H61.23 Impacted cerumen, bilateral; R07.0 Pain in throat; R05.9 Cough, unspecified
CPT/HCPCS: 69209; 99213; 99214; G0463

== ENCOUNTER 2023-11-01 14:32 | Emergency (ER) | payer BC, SELFPAY ==
[2023-11-01] VITALS (8 sets, daily range): BP systolic 103–130; BP diastolic 57–85; PULSE 74–97; RESP 16–18; TEMP 36.9; O2SAT 98–100; BMI 23.3
[2023-11-01 14:40] LABS: Microscopic, Urine URINE MICROSCOPIC (MICROSCOPIC)
--- NOTE | 2023-11-01 14:40 | PC.NURSE ---
Dr. Oh at [facility] for pt eval
--- NOTE | 2023-11-01 14:46 | US_ITS ---
PROCEDURE INFORMATION: Exam: US , Transvaginal Exam date and time: 11/01/2023 4:33 PM Age: 28 years old Clinical indication: complicated by abdominal or pelvic pain; Lower; First trimester (<14 weeks 0 days); Gestational age or lmp: 10w4d; ; Additional info: + home preg, bleeding/pain LABS AND CLINICAL REPORTS: Last menstrual period start date: 08/19/2023 Gestational age (Established): 10 w 4 d Estimated due date (Established): 05/25/2024 TECHNIQUE: Imaging protocol: Real-time transvaginal obstetrical ultrasound of the maternal pelvis with image documentation. Transvaginal imaging was used for better evaluation of the fetus, adnexa, and/or cervix. Total images: [id number] COMPARISON: No relevant prior studies available. FINDINGS: Gestation: Single intrauterine gestation. BIOMETRY: Gestational age (AUA): 6 w 2 d. Average gestational age (AUA) 6 weeks 2 days. Estimated due date (AUA): 06/24/2024. Estimated date of delivery (AUA) 06/24/2024. [place] rump length (CRL): 4.47 mm. EGA (CRL) is 6 w [address] d[address] [place]-rump length measures 4.5 mm. MATERNAL: Right ovary/adnexa: Right ovary measures 3.23 cm x 2.22 cm x 2.51 cm. Right ovarian volume is 9.42 mL. Right ovary measures 3.2 x 2.2 x 2.5 cm. Left ovary/adnexa: Left ovary measures 3.24 cm x 2.55 cm x 2.98 cm. Left ovarian volume is 12.89 mL. Left ovary measures 3.2 x 2.6 x 3.0 cm. Intraperitoneal space: No free fluid. IMPRESSION: 1. Single intrauterine gestation. 2. Average gestational age (AUA) 6 weeks 2 days. 3. No free fluid.
--- NOTE | 2023-11-01 14:47 | ED_ITS ---
Discharge Plan Disposition Patient Disposition: Home, Self-Care Chief Complaint: Vaginal Bleeding Prescriptions Prescriptions: No Action cetirizine [Zyrtec] 10 mg Tablet 10 mg PO DAILY cod liver oil Capsule 2 cap PO DAILY inositol 500 mg Tablet 3,000 mg PO BID vitamin K2 100 mcg Capsule 100 mcg PO DAILY svgdkhwk-jdpy-qxdgc-oreg-capry 100 mg-150 mg- 50 mg-150 mg Capsule 1 cap PO DAILY amoxicillin 875 mg tablet 875 mg PO Q12H Qty: 20 0RF pjvecfheuaocvse-pwnufrwos-UB [Bromfed DM] 2-30-10 mg/5 mL Syrup 5 ml PO Q6H PRN (Reason: Cough) Qty: 240 0RF methylprednisolone 4 mg Tablets,Dose Pack 4 mg PO DIRECTED 6 Days Qty: 21 0RF Rx Instructions: Take 1 pack as directed for 6 days Referrals Follow up/Referrals: Provider,Referral, [Primary Care Provider] - See instructions Bettina Bello DO [Staff Physician] - See instructions Activity Restrictions/Add. Instructions Additional Instructions/Restrictions: Follow-up with POLITICAL ANTHROPOLOGIST as scheduled. You can contact Dr. Bello's office and see if you can be seen in the next 48 hours to have your hCG level redrawn. 48-hour redraw on 11/02 will be most accurate. Call your family doctor to establish care for this visit to the emergency department and schedule follow-up within 48 hours to ensure improvement. If you have any worsening of your condition or any other concerning signs or symptoms, return to the emergency department or your primary care doctor for further evaluation. Clinical Impressions Clinical Impression: Vaginal bleeding during Print Language Print Language: Bulgarian Discharge ED Provider: Anselmo Hairston General Adult HPI <Jesi Oh DO - Last Filed: 11/01/23 14:51> General Chief complaint: Vaginal Bleeding Stated complaint: possibly 7-8 weeks preg, bleeding Time Seen by Provider: 11/01/23 14:35 History of Present Illness HPI narrative: This patient is a 28-year-old female with a history of psoriatic arthritis and migraines presenting to the emergency department for evaluation. Patient is a G1, P0 at estimated 7-8 weeks gestation who has not yet had her initial OB appointment presenting with concern for vaginal bleeding and cramping. She reports that she started spotting on Thursday 2 days ago, but the bleeding has gotten progressively more heavy each day. Today, she states she passed a quarter size clot in the toilet and became concerned. She has also had lower abdominal cramping, but no severe pain. She does complain of a headache at this time, which is not outside of the norm for her. No other concerns noted as of late Related Data Home Medications ?Medication ?Instructions ?Recorded ?Confirmed cetirizine 10 mg tablet (Zyrtec) 10 mg PO DAILY 01/25/23 08/30/23 cod liver oil 2 cap PO DAILY 01/25/23 08/30/23 inositol 500 mg tablet 3,000 mg PO BID Anxiety 01/25/23 08/30/23 turmeric 100 mg-zander 150 1 cap PO DAILY 01/25/23 08/30/23 mg-olive 50 mg-oreg 150 mg-capryl capsule vitamin K2 100 mcg capsule 100 mcg PO DAILY 01/25/23 08/30/23 Previous Rx's ?Medication ?Instructions ?Recorded amoxicillin 875 mg tablet 875 mg PO Q12H #20 tabs 08/30/23 keiqdqgucbgdvbu-yltuafwwmbsxztb-ZO 5 ml PO Q6H PRN Cough #240 mL 08/30/23 2 mg-30 mg-10 mg/5 mL oral syrup (Bromfed DM) methylprednisolone 4 mg tablets in 4 mg PO DIRECTED 6 days #21 tabs 08/30/23 a dose pack Allergies Allergy/AdvReac Type Severity Reaction Status Date / Time No Known Allergies Allergy Verified 08/25/22 10:54 PFSH <Jesi Oh DO - Last Filed: 11/01/23 14:51> PFS Disclaimer: The information contained in this section may have been updated after the patient was seen, as this information can be updated by other users. 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 Depression Anxiety Urinary tract infection Migraine Surgical History History of wisdom tooth extraction History of appendectomy Social History Smoking Status: Never smoker alcohol intake: never current occupational status: other Travel in the last 8 weeks: None <Jesi Oh DO - Last Filed: 11/01/23 14:51> ROS Obtained: Yes All systems reviewed & no additional complaints except as documented Physical Exam <Jesi Oh DO - Last Filed: 11/01/23 14:51> General General appearance: alert and in no apparent distress Head Head exam: atraumatic and normocephalic Eye Eye exam: Present normal appearance, PERRL and EOMI ENT ENT exam: Present normal exam, normal oropharynx, mucous membranes moist and normal external ear exam Neck Neck exam: Present normal inspection, full ROM and trachea midline; Absent tenderness Chest Chest inspection: Present normal inspection and symmetric chest wall rise; Absent tenderness Respiratory Respiratory exam: Present normal lung sounds bilaterally; Absent respiratory distress, wheezes, stridor or accessory muscle use Cardiovascular Cardiovascular exam: Present regular rate and normal rhythm Abdominal Exam Abdominal exam: Present soft; Absent distention, tenderness or guarding Extremities Exam Extremities exam: Present normal inspection, full ROM and normal capillary refill; Absent tenderness or edema Back Exam Back exam: Present normal inspection and full ROM; Absent tenderness Neurological Exam Neurological exam: Present alert, oriented X3, CN II-XII intact and normal gait; Absent motor sensory deficit Psychiatric Psychiatric exam: Present normal affect and normal mood Skin Skin exam: Present warm and dry Medical Decision Making <Jesi Oh, DO - Last Filed: 11/01/23 14:51> Medical Records Medical records reviewed: Yes I reviewed the patient's medical records. Alonso Inquiry Pt receiving controlled substance: No Vital Signs: 11/01/23 14:33 11/01/23 14:40 11/01/23 15:00 Temperature 98.4 F Temperature Source Oral Pulse Rate 88 79 Pulse Rate [Left Radial] 79 Respiratory Rate 16 Blood Pressure 130/85 109/73 L Blood Pressure [Right Arm] 130/85 Blood Pressure Mean [Right Arm] 100 02 Sat by Pulse Oximetry 98 99 100 Oxygen Delivery Method Room Air 11/01/23 15:30 11/01/23 16:01 11/01/23 16:30 Temperature Temperature Source Pulse Rate 97 H 84 76 Pulse Rate [Left Radial] Respiratory Rate Blood Pressure 129/79 103/57 L 103/65 L Blood Pressure [Right Arm] Blood Pressure Mean [Right Arm] 02 Sat by Pulse Oximetry 100 99 100 Oxygen Delivery Method 11/01/23 17:00 Temperature Temperature Source Pulse Rate 76 Pulse Rate [Left Radial] Respiratory Rate Blood Pressure 128/69 Blood Pressure [Right Arm] Blood Pressure Mean [Right Arm] 02 Sat by Pulse Oximetry 99 Oxygen Delivery Method Lab Data Lab results reviewed: Yes I reviewed the patient's lab results. Lab Results 11/01/23 14:34: Urine Color Yellow, Urine Appearance Clear, Urine pH 7.5, Ur Specific Roe 1.010, Urine Protein Negative, Urine Glucose (UA) Negative, Urine Ketones Negative, Urine Blood 3+, Urine Nitrate Negative, Urine Bilirubin Negative, Urine Urobilinogen 0.2, Ur Leukocyte Esterase Negative, Urine RBC 10- 20, Urine WBC None, Ur Squamous Epith Cells 3-5 11/01/23 14:40: WBC 6.6, RBC 4.81, Hgb 13.5, Hct 42.3, MCV 87.9, MCH 28.1, MCHC 31.9, RDW 14.1, Plt Count 260, MPV 8.2, Neut % (Auto) 73.3, Lymph % (Auto) 19.0, [place] % (Auto) 4.6, Eos % (Auto) 2.1, Baso % (Auto) 1.0, Neut # (Auto) 4.8, Lymph # (Auto) 1.2, [place] # (Auto) 0.3, Eos # (Auto) 0.1, Baso # (Auto) 0.1, Sodium 140, Potassium 3.4 L, Chloride 106, Carbon Dioxide 26, Anion Gap 11.4, BUN 6 L, Creatinine 0.40 L, Estimated Creat Clear 217, Estimated GFR 190, Est GFR ( Amer) 230, Glucose 131 H, Calcium 9.2, Total Bilirubin 0.6, AST 31, ALT 23, Alkaline Phosphatase 68, Total Protein 8.0, Albumin 4.7, Globulin 3.3 H, Albumin/Globulin Ratio 1.4, HCG, Quant [id number] H 11/01/23 15:15: Blood Type A Positive, Antibody Screen Negative 11/01/23 14:40 11/01/23 14:40 Orders (Tests/Meds): ED MEDICATIONS Discontinued Medications Generic Name Dose Route Start Last Admin Trade Name Freq PRN Reason Stop Dose Admin Acetaminophen 1,000 mg 11/01/23 15:46 11/01/23 16:21 Acetaminophen 500mg Tab PO 11/01/23 15:47 1,000 mg ONCE ONE Administration ORDERS Category Date Time Status Type and Screen Stat BBK 11/01/23 15:15 Completed POCUS Point of Care (ER Only) Stat Exams 11/01/23 14:35 Completed Complete Blood Count Auto Diff Stat Lab 11/01/23 14:40 Completed Comprehensive Metabolic Panel Stat Lab 11/01/23 14:40 Completed HCG,Quantitative Stat Lab 11/01/23 14:40 Completed UA [Urinalysis and Microscopic] Stat Lab 11/01/23 14:34 Completed US OB transvaginal Stat Ultrasound 11/01/23 14:46 Taken Medical Decision Narrative: In summary, this patient is a 28-year-old female presenting to the Emergency Department for evaluation of cramping and vaginal bleeding in the setting of early . Differential diagnoses considered include but are not limited to ectopic , intrauterine , subchorionic hemorrhage, threatened , missed . Ruling out the most morbid conditions drove assessment. On exam, the patient is sitting upright in bed in no acute distress. Abdominal exam is benign. Bedside ultrasound was performed but was indeterminate. Given this, transvaginal ultrasound was ordered as well as CBC, CMP, quantitative hCG, type and screen, and urinalysis. Patient care signed out to the oncoming provider, Dr. Hairston, pending workup and disposition. <Anselmo Hairston MD - Last Filed: 11/01/23 17:34> Vital Signs: 11/01/23 14:33 11/01/23 14:40 11/01/23 15:00 Temperature 98.4 F Temperature Source Oral Pulse Rate 88 79 Pulse Rate [Left Radial] 79 Respiratory Rate 16 Blood Pressure 130/85 109/73 L Blood Pressure [Right Arm] 130/85 Blood Pressure Mean [Right Arm] 100 02 Sat by Pulse Oximetry 98 99 100 Oxygen Delivery Method Room Air 11/01/23 15:30 11/01/23 16:01 11/01/23 16:30 Temperature Temperature Source Pulse Rate 97 H 84 76 Pulse Rate [Left Radial] Respiratory Rate Blood Pressure 129/79 103/57 L 103/65 L Blood Pressure [Right Arm] Blood Pressure Mean [Right Arm] 02 Sat by Pulse Oximetry 100 99 100 Oxygen Delivery Method 11/01/23 17:00 Temperature Temperature Source Pulse Rate 76 Pulse Rate [Left Radial] Respiratory Rate Blood Pressure 128/69 Blood Pressure [Right Arm] Blood Pressure Mean [Right Arm] 02 Sat by Pulse Oximetry 99 Oxygen Delivery Method Lab Data Lab Results 11/01/23 14:34: Urine Color Yellow, Urine Appearance Clear, Urine pH 7.5, Ur Specific Roe 1.010, Urine Protein Negative, Urine Glucose (UA) Negative, Urine Ketones Negative, Urine Blood 3+, Urine Nitrate Negative, Urine Bilirubin Negative, Urine Urobilinogen 0.2, Ur Leukocyte Esterase Negative, Urine RBC 10- 20, Urine WBC None, Ur Squamous Epith Cells 3-5 11/01/23 14:40: WBC 6.6, RBC 4.81, Hgb 13.5, Hct 42.3, MCV 87.9, MCH 28.1, MCHC 31.9, RDW 14.1, Plt Count 260, MPV 8.2, Neut % (Auto) 73.3, Lymph % (Auto) 19.0, [place] % (Auto) 4.6, Eos % (Auto) 2.1, Baso % (Auto) 1.0, Neut # (Auto) 4.8, Lymph # (Auto) 1.2, [place] # (Auto) 0.3, Eos # (Auto) 0.1, Baso # (Auto) 0.1, Sodium 140, Potassium 3.4 L, Chloride 106, Carbon Dioxide 26, Anion Gap 11.4, BUN 6 L, Creatinine 0.40 L, Estimated Creat Clear 217, Estimated GFR 190, Est GFR ( Amer) 230, Glucose 131 H, Calcium 9.2, Total Bilirubin 0.6, AST 31, ALT 23, Alkaline Phosphatase 68, Total Protein 8.0, Albumin 4.7, Globulin 3.3 H, Albumin/Globulin Ratio 1.4, HCG, Quant [id number] H 11/01/23 15:15: Blood Type A Positive, Antibody Screen Negative Orders (Tests/Meds): ED MEDICATIONS Discontinued Medications Generic Name Dose Route Start Last Admin Trade Name Freq PRN Reason Stop Dose Admin Acetaminophen 1,000 mg 11/01/23 15:46 11/01/23 16:21 Acetaminophen 500mg Tab PO 11/01/23 15:47 1,000 mg ONCE ONE Administration ORDERS Category Date Time Status Type and Screen Stat BBK 11/01/23 15:15 Completed POCUS Point of Care (ER Only) Stat Exams 11/01/23 14:35 Completed Complete Blood Count Auto Diff Stat Lab 11/01/23 14:40 Completed Comprehensive Metabolic Panel Stat Lab 11/01/23 14:40 Completed HCG,Quantitative Stat Lab 11/01/23 14:40 Completed UA [Urinalysis and Microscopic] Stat Lab 11/01/23 14:34 Completed US OB transvaginal Stat Ultrasound 11/01/23 14:46 Taken Medical Decision Narrative: In summary, this patient is a 28-year-old female presenting to the Emergency Department for evaluation of cramping and vaginal bleeding in the setting of early . Differential diagnoses considered include but are not limited to ectopic , intrauterine , subchorionic hemorrhage, threatened , missed . Ruling out the most morbid conditions drove assessment. On exam, the patient is sitting upright in bed in no acute distress. Abdominal exam is benign. Bedside ultrasound was performed but was indeterminate. Given this, transvaginal ultrasound was ordered as well as CBC, CMP, quantitative hCG, type and screen, and urinalysis. Patient care signed out to the oncoming provider, Dr. Hairston, pending workup and disposition. Yovanny: I assumed primary responsibility for this patient after signout from previous physician. On my independent evaluation, patient in no acute distress, tolerating p.o. intake, no acute complaints. Abdomen soft, nontender, nondistended. No flank tenderness. Intermittent to retention of workup with nonactionable CBC, normal hemoglobin at 13.5, platelets normal. Patient's chemistry nonactionable with normal kidney function. hCG elevated at 27,000, urinalysis with blood, contaminated sample. Blood type A+. Bedside ufgau-fn-qphc ultrasound without obvious discernible yolk sac or fetus. Transvaginal ultrasound with fetus estimated gestational age just over 6 weeks, amnion present. Because patient at baseline without signs or symptoms of clinical decompensation, deemed appropriate for discharge. Results were relayed to patient who voiced understanding and were agreeable to outpatient management and follow up. I discussed my clinical impression with patient and answered all questions. At this time, the evidence for any other entities in the differential is insufficient to warrant any further testing or ED observation. This was explained as well. Advisory was given that persistent or worsening symptoms require further evaluation. I confirmed the understanding of this discussion. Procedures <Jesi Oh, DO - Last Filed: 11/01/23 14:51> Limited Ultrasound Findings:: Limited OB ultrasound Indication: Positive home test, vaginal bleeding, pelvic pain Identified structures: Uterus, pouch of Sukhdev Findings: Uterus: Unable to visualize definitive IUP Cul de sac: No free fluid Impression: -IUP: Indeterminate -Ectopic : Indeterminate -Free fluid: Absent Images were saved to permanent archive The study was technically adequate CPT Transabdominal: 59565-25 This study was performed by me, and I personally interpreted all images/videos. Based on my clinical judgement, these images were adequate and did not necessitate further imaging. Critical Care <Jesi Oh, DO - Last Filed: 11/01/23 14:51> Critical Care Time Critical Care Time: No
[2023-11-01 14:52] LABS: Appearance,Urine CLEAR (Clear); Bilirubin,Urine Negative (Negative); Blood, Urine 3+ (Negative); Color,Urine YELLOW (Yellow); Glucose,Urine (UA) Negative (Negative); Ketones,Urine Negative (Negative); Leukocyte Esterase,Urine Negative (Negative); Nitrate,Urine Negative (Negative); PH,Urine 7.5 (5.0-8.5); Protein,Urine Negative (Negative); Urobilinogen,Urine 0.2 EU/dl (0.2)
[2023-11-01 15:00] LABS: Basophils # 0.1 K/mm3 (0-0.2); Eosinophils # 0.1 K/mm3 (0.0-0.4); Eosinophils % 2.1 % (0.1-12.0); Hematocrit 42.3 % (37.0-47.0); Hemoglobin 13.5 g/dL (12.2-16.2); Lymphocytes # 1.2 K/mm3 (0.7-4.5); Mean Corpuscular HGB Conc 31.9 g/dL (31.8-35.4); Mean Corpuscular Hemoglobin 28.1 pg (27.0-31.2); Mean Corpuscular Volume 87.9 fl (81-99); Mean Platelet Volume 8.2 fl (7.4-10.4); Monocytes # 0.3 K/mm3 (0.1-1.0); Monocytes % 4.6 % (1.7-9.3); Neutrophils # 4.8 K/mm3 (1.8-7.8); Neutrophils % 73.3 % (37.0-80.0); Platelet Count 260 K/mm3 (142-424); Red Blood Count 4.81 M/mm3 (4.20-5.40); Red Cell Distribution Width 14.1 % (11.5-17.5); White Blood Count 6.6 K/mm3 (4.8-10.8)
[2023-11-01 15:13] LABS: Albumin Level 4.7 g/dl (3.5-5.0); Chloride 106 mmol/L (98-107); Potassium 3.4 mmoL/L (3.5-5.1); Sodium 140 mmol/L (136-145)
[2023-11-01 15:16] LABS: Alanine Aminotransferase 23 U/L (12-78); Albumin/Globulin Ratio 1.4 (1.1-1.8); Alkaline Phosphatase 68 U/L (38-126); Anion Gap 11.4 mEq/L (5-15); Aspartate Amino Transferase 31 U/L (14-36); Bilirubin,Total 0.6 mg/dl (0.2-1.3); Blood Urea Nitrogen 6 mg/dl (7-17); Calcium 9.2 mg/dl (8.4-10.2); Carbon Dioxide 26 mmol/L (22.0-30.0); Creatinine Clearance Estimated 217 mL/min (50-200); Estimated Glomerular Filt Rate 190 ml/min (>60); GFR (African American) 230 ML/MIN (>60); Globulin 3.3 g/dL (1.3-3.2); Glucose 131 mg/dl (74-100)
[2023-11-01 15:58] LABS: HCG,Quantitative 27000 mIU/ml (0-5.42)
[2023-11-01] MEDS: ACETAMINOPHEN 500MG TAB 1000 MG PO (16:21)
--- NOTE | 2023-11-01 16:40 | PC.NURSE ---
patient gone to US at this time.
--- NOTE | 2023-11-01 16:58 | PC.NURSE ---
pt returned from u/s
--- NOTE | 2023-11-01 16:58 | PC.NURSE ---
patient back in room at this time.
--- NOTE | 2023-11-01 17:40 | PC.NURSE ---
Dr. Hairston at BS for pt eval
== END 2023-11-01 17:54 | disposition home or self-care (01) ==
PROVIDERS: Emergency Medicine; Emergency Provider Emergency Medicine
DX: O20.9 Hemorrhage in early pregnancy, unspecified (principal); E87.6 Hypokalemia; R25.2 Cramp and spasm; Z3A.01 Less than 8 weeks gestation of pregnancy
CPT/HCPCS: 36415; 76817; 80053; 81001; 84702; 85025; 86850; 99284

== ENCOUNTER 2023-11-02 03:49 | Emergency (ER) | payer BC, SELFPAY ==
[2023-11-02 03:50] VITALS: BP 127/87; PULSE 101; RESP 18; TEMP 36.9; O2SAT 99; BMI 23.3
[2023-11-02 04:12] LABS: Basophils # 0.1 K/mm3 (0-0.2); Basophils % 0.7 % (0.1-2.0); Eosinophils # 0.2 K/mm3 (0.0-0.4); Eosinophils % 1.7 % (0.1-12.0); Hematocrit 39.3 % (37.0-47.0); Hemoglobin 12.3 g/dL (12.2-16.2); Lymphocytes # 1.4 K/mm3 (0.7-4.5); Lymphocytes % 13.2 % (10-50); Mean Corpuscular HGB Conc 31.2 g/dL (31.8-35.4); Mean Corpuscular Hemoglobin 27.5 pg (27.0-31.2); Mean Corpuscular Volume 88.2 fl (81-99); Mean Platelet Volume 8.2 fl (7.4-10.4); Monocytes # 0.5 K/mm3 (0.1-1.0); Monocytes % 4.3 % (1.7-9.3); Neutrophils # 8.4 K/mm3 (1.8-7.8); Neutrophils % 80.1 % (37.0-80.0); Platelet Count 291 K/mm3 (142-424); Red Blood Count 4.45 M/mm3 (4.20-5.40); Red Cell Distribution Width 14.1 % (11.5-17.5); White Blood Count 10.5 K/mm3 (4.8-10.8)
--- NOTE | 2023-11-02 04:12 | ED_ITS ---
Discharge Plan Disposition Patient Disposition: Admitted Condition: Good Chief Complaint: Vaginal Bleeding Prescriptions Prescriptions: No Action cetirizine [Zyrtec] 10 mg Tablet 10 mg PO DAILY cod liver oil Capsule 2 cap PO DAILY inositol 500 mg Tablet 3,000 mg PO BID vitamin K2 100 mcg Capsule 100 mcg PO DAILY cpdrjcfc-ibtr-cwtzx-oreg-capry 100 mg-150 mg- 50 mg-150 mg Capsule 1 cap PO DAILY amoxicillin 875 mg tablet 875 mg PO Q12H Qty: 20 0RF mohtgxioplgcsjv-gwwctegkp-PI [Bromfed DM] 2-30-10 mg/5 mL Syrup 5 ml PO Q6H PRN (Reason: Cough) Qty: 240 0RF methylprednisolone 4 mg Tablets,Dose Pack 4 mg PO DIRECTED 6 Days Qty: 21 0RF Rx Instructions: Take 1 pack as directed for 6 days Clinical Impressions Clinical Impression: Vaginal bleeding affecting early Print Language Print Language: Telugu Discharge ED Provider: Daquan Pereira General Adult HPI General Chief complaint: Vaginal Bleeding Stated complaint: 6 weeks bleeding and cramping Time Seen by Provider: 11/02/23 03:55 Mode of Arrival: Ambulatory Source of Information: Patient Limitations: No Limitations Description of Symptoms (Recalled from ER Triage Doc. by RN): Pt 6w2d with c/o vaginal bleeding and cramping since thursday, worsening since 0 last night. Pt reports soaking through 5 pads with bright red blood since 2199. Pt reports occassional blood clots. Pt states she took excederin for a migraine at 1830 last night. Pt was seen here around 1400 yesterday for c/o vaginal bleeding and cramping as well. History of Present Illness HPI narrative: Otherwise healthy 28-year-old female who was identified to be 6 weeks 2 days on an ultrasound less than 12 hours ago presents to the ER for complaints of vaginal bleeding and cramping in the last few days, worsening since 10 PM. Patient reports soaking through 5 pads in 5 hours and passing clots up to the size of a quarter. Patient states she had severe migraine last night and took an Excedrin around 6:30 PM. She is concerned the aspirin and that medication could be exacerbating her symptoms. Patient had been evaluated in the ER approximately 12 hours prior to this visit. She had been discharged in stable condition with return precautions and follow-up with her OB. Her hCG at that time was 27,000. Patient is concerned for miscarriage. She is G1, P0. LMP 08/19/2023. Patient has had mild nausea but no vomiting. ROS otherwise negative. Patient reports she takes a as well as a few supplements that include vitamin B6, B12, and frankincense essential oil. Related Data Home Medications ?Medication ?Instructions ?Recorded ?Confirmed cetirizine 10 mg tablet (Zyrtec) 10 mg PO DAILY 01/25/23 08/30/23 cod liver oil 2 cap PO DAILY 01/25/23 08/30/23 inositol 500 mg tablet 3,000 mg PO BID Anxiety 01/25/23 08/30/23 turmeric 100 mg-zander 150 1 cap PO DAILY 01/25/23 08/30/23 mg-olive 50 mg-oreg 150 mg-capryl capsule vitamin K2 100 mcg capsule 100 mcg PO DAILY 01/25/23 08/30/23 Previous Rx's ?Medication ?Instructions ?Recorded amoxicillin 875 mg tablet 875 mg PO Q12H #20 tabs 08/30/23 xgifmqycuxdulch-iqaudonnflgadiv-CK 5 ml PO Q6H PRN Cough #240 mL 08/30/23 2 mg-30 mg-10 mg/5 mL oral syrup (Bromfed DM) methylprednisolone 4 mg tablets in 4 mg PO DIRECTED 6 days #21 tabs 08/30/23 a dose pack Allergies Allergy/AdvReac Type Severity Reaction Status Date / Time No Known Allergies Allergy Verified 08/25/22 10:54 [facility] Disclaimer: The information contained in this section may have been updated after the patient was seen, as this information can be updated by other users. 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 Depression Anxiety Urinary tract infection Migraine Surgical History History of wisdom tooth extraction History of appendectomy Social History Smoking Status: Never smoker alcohol intake: never current occupational status: other Travel in the last 8 weeks: None ROS Obtained: Yes All systems reviewed & no additional complaints except as documented Positive ROS per HPI Physical Exam General General appearance: alert and in no apparent distress Head Head exam: atraumatic and normocephalic Eye Eye exam: Present PERRL and EOMI ENT ENT exam: Present mucous membranes moist Neck Neck exam: Present normal inspection and full ROM Chest Chest inspection: Present symmetric chest wall rise Respiratory Respiratory exam: Present normal lung sounds bilaterally; Absent respiratory distress, wheezes or stridor Cardiovascular Cardiovascular exam: Present normal rhythm and tachycardia Abdominal Exam Abdominal exam: Present soft and tenderness (Mild lower abdominal tenderness); Absent distention, guarding, rebound or rigidity Extremities Exam Extremities exam: Present full ROM Neurological Exam Neurological exam: Present alert and oriented X3; Absent motor sensory deficit Psychiatric Psychiatric exam: Present normal affect and normal mood Skin Skin exam: Present warm and dry Medical Decision Making Medical Records Medical records reviewed: Yes I reviewed the patient's medical records. MR Comment: Transvaginal ultrasound yesterday demonstrated single intrauterine gestation with an estimated age of 6 weeks and 2 days Alonso Inquiry Pt receiving controlled substance: No Vital Signs: 11/02/23 03:50 Temperature 98.4 F Temperature Source Oral Pulse Rate [Left Radial] 101 H Respiratory Rate 18 Blood Pressure [Right Arm] 127/87 Blood Pressure Mean [Right Arm] 100 Blood Pressure Source [Right Arm] Automatic Cuff Blood Pressure Position [Right Arm] Sitting 02 Sat by Pulse Oximetry 99 Oxygen Delivery Method Room Air Orders (Tests/Meds): ORDERS Category Date Time Status CBC w/Auto Diff [Complete Blood Count Auto Diff] Stat Lab 11/02/23 04:05 Received CMP [Comprehensive Metabolic Panel] Stat Lab 11/02/23 04:05 Received PT INR [Prothrombin Time INR] Stat Lab 11/02/23 04:05 Received Medical Decision Narrative: In summary, this 28-year-old female presents to the emergency department today with vaginal bleeding, cramping in the setting of early . On initial evaluation patient is mildly tachycardic but otherwise hemodynamically stable, afebrile, mild lower abdominal tenderness to palpation without rebound or guarding. Remainder of exam benign. Differential diagnosis includes but is not limited to miscarriage, subchorionic hemorrhage, I considered ectopic however this was ruled out on transvaginal ultrasound 12 hours ago, considered UTI or asymptomatic bacteriuria however patient had negative UA on her workup 12 hours ago, also considered anemia and acute blood loss. Patient's blood type is a positive. Based on these concerns, I ordered CBC, CMP, PT/INR. Labs personally reviewed demonstrate increase in WBCs now 10.5, decrease in patient's hemoglobin to 12.3, previously 13.5 approximately 12 hours prior. Platelets 291, PT/INR normal, CMP with trace hypokalemia, no findings of kidney or liver dysfunction. Repeat hCG is not indicated at this time given the short amount of time from her previous test. With the drop in patient's hemoglobin and her mild tachycardia with symptoms of bleeding through a pad every hour, I discussed this case with OB on-call, Dr. Castillo at this time recommends any pain medication that the pain would like since she believes this is likely a miscarriage. She also recommends IV fluids and admission to OB for continued monitoring and possibly a procedure if needed to slow bleeding. I discussed this with the patient. She is amenable to admission. She states she does not need any pain medications at this time. LR ordered. Patient admitted in stable condition. Critical Care Critical Care Time Critical Care Time: No
[2023-11-02 04:19] LABS: Chloride 107 mmol/L (98-107)
[2023-11-02 04:20] LABS: Albumin Level 4.5 g/dl (3.5-5.0); Potassium 3.3 mmoL/L (3.5-5.1); Sodium 137 mmol/L (136-145)
[2023-11-02 04:22] LABS: Blood Urea Nitrogen 4 mg/dl (7-17); Creatinine Clearance Estimated 174 mL/min (50-200); Estimated Glomerular Filt Rate 147 ml/min (>60); GFR (African American) 178 ML/MIN (>60)
[2023-11-02 04:23] LABS: Alanine Aminotransferase 20 U/L (12-78); Albumin/Globulin Ratio 1.4 (1.1-1.8); Alkaline Phosphatase 82 U/L (38-126); Anion Gap 12.3 mEq/L (5-15); Aspartate Amino Transferase 28 U/L (14-36); Bilirubin,Total 0.6 mg/dl (0.2-1.3); Calcium 9.1 mg/dl (8.4-10.2); Carbon Dioxide 21 mmol/L (22.0-30.0); Globulin 3.3 g/dL (1.3-3.2); Glucose 108 mg/dl (74-100); Total Protein,Serum 7.8 g/dl (6.3-8.2)
[2023-11-02 04:24] LABS: INR 0.97 (0.9-1.1); Prothrombin Time 10.9 seconds (10.1-12.5)
--- NOTE | 2023-11-02 04:35 | PC.NURSE ---
report called to [facility]
[2023-11-02] MEDS: LACTATED RINGERS 1000ML 1,000 ML 999 ML IV (04:37)
--- NOTE | 2023-11-02 04:40 | PC.NURSE ---
Pt arrived to Unit via wheelchair. Patient will remain in room 279 for observation
[2023-11-02 04:46] VITALS: BP 113/93; PULSE 96; RESP 16; TEMP 36.6; O2SAT 100
[2023-11-02 04:50] VITALS: O2SAT 98
[2023-11-02 04:56] VITALS: BP 105/58; PULSE 77; RESP 16; TEMP 36.7; O2SAT 98; BMI 23.3
--- NOTE | 2023-11-02 05:50 | PC.NURSE ---
Pt up to bathroom, patient reports quater sized amount of bleeding on pad. Bleeding is slowing down and patient denies pain at this time
--- NOTE | 2023-11-02 06:06 | PC.NURSE ---
Dr. Tabares calling to check in on patient. Report given on patient status. New orders see MAR. Read back and verified. Order recieved for repeat CBC and Beta Quant levels. Read back and verified.
--- NOTE | 2023-11-02 06:11 | US_ITS ---
PROCEDURE: US OB TRANSVAGINAL CLINICAL INDICATION: vaginal bleeding during first trimester COMPARISON: US OB TRANSVAGINAL from 11/01/2023 FINDINGS: Transvaginal sonographic images of the pelvis were obtained. From her last menstrual period she is 10weeks. The previously described intrauterine gestational sac today is absent. The endometrium measures 7.1 mm. There appears to be a small amount of blood clot within the endometrial cavity. There appears to be tissue within the cervix measuring 3.3 cm cm x 0.7 cm. heart tones are absent. Yolk sac is absent. The right ovary is seen and appears polycystic with multiple small peripheral follicles. The left ovary is seen and appears polycystic with multiple small peripheral follicles. There is no fluid in the cul-de-sac. IMPRESSION: 1. The previously described intrauterine gestational sac is absent today. 2. heart tones are absent today and no fetus is seen. 3. There appears to be persistent clot or tissue within the cervix. 4. The endometrium is thin and there may be a small amount of clot in the endometrial cavity. 5. Both ovaries are seen appear polycystic. 6. No fluid in the cul-de-sac. Dictated by: Cody Vuong MD 11/02/2023 17:00 Cody Vuong MD in OV 11/02/2023 17:00
[2023-11-02 07:10] LABS: Eosinophils # 0.1 K/mm3 (0.0-0.4); Lymphocytes # 1.3 K/mm3 (0.7-4.5); Monocytes # 0.4 K/mm3 (0.1-1.0); Neutrophils # 6.6 K/mm3 (1.8-7.8); White Blood Count 8.4 K/mm3 (4.8-10.8)
[2023-11-02 07:24] LABS: Basophils # 0.1 K/mm3 (0-0.2); Basophils % 0.6 % (0.1-2.0); Eosinophils % 0.7 % (0.1-12.0); Hematocrit 35.9 % (37.0-47.0); Mean Corpuscular HGB Conc 30.6 g/dL (31.8-35.4); Mean Corpuscular Hemoglobin 26.9 pg (27.0-31.2); Mean Corpuscular Volume 87.9 fl (81-99); Mean Platelet Volume 8.5 fl (7.4-10.4); Monocytes % 4.2 % (1.7-9.3); Neutrophils % 78.4 % (37.0-80.0); Platelet Count 261 K/mm3 (142-424); Red Blood Count 4.09 M/mm3 (4.20-5.40); Red Cell Distribution Width 14.1 % (11.5-17.5)
--- NOTE | 2023-11-02 07:25 | PC.NURSE ---
Pt. to U/S via wheelchair accompanied by U/S staff.
[2023-11-02 07:36] LABS: HCG,Quantitative 14103 mIU/ml (0-5.42)
--- NOTE | 2023-11-02 07:46 | PC.NURSE ---
Pt. back into room 279 via wheelchair, accompanied by U/S staff.
--- NOTE | 2023-11-02 08:36 | P.HPDS_ITS ---
General Admission date:: 11/02/23 Discharge date: 11/02/23 *Admission Date: 11/02/23 *Chief complaint: vaginal bleeding in *History of present illness: Mrs Yue Leung is a very pleasant 28 yo at 7w6d admitted to [facility] L&D for observation for vaginal bleeding in early . LMP 09/08/23. She started spotting on Thursday, 10/30. She went to the ED yesterday afternoon secondary to increased light bleeding and cramping. Beta hcg quant 27,000; pelvic ultrasound demonstrated SIUP at 6w2d, no yolk sac or FHR noted. She was discharged home with follow-up. However, bleeding and cramping increased around 2200 last night, 11/01/23. She returned to the ED. Hgb decreased to 12.3 from 13.5. She had mild tachycardia, BP normotensive. No fever/chills, chest pain or shortness of breath. No lightheadedness/dizziness. Her and her have been wanting to get but not actively trying but not preventing. She is paying attention to her body and focusing more on natural family planning. She is not on hormonal contraception. She has history of psoriatic arthritis but stopped all medicine at the beginning of 2023. She is following with a Meteorological Equipment Repairer and is successfully controlling her symptoms. She is taking a PNV. She admits since admission a few hours ago bleeding has slowed down and cramping has almost completely resolved. [facility] Disclaimer: The information contained in this section may have been updated after the patient was seen, as this information can be updated by other users. 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 (Updated 11/02/23 @ 09:14 by Mary Jane Tabares DO) Spontaneous miscarriage Anxiety Urinary tract infection Migraine Surgical History (Updated 11/02/23 @ 04:56 by Jannet Barajas RN) History of wisdom tooth extraction History of appendectomy Social History (Updated 11/02/23 @ 04:56 by Jannet Barajas RN) Smoking Status: Never smoker alcohol intake: never current occupational status: employed Travel in the last 8 weeks: Inside the [place] Review of Systems Review of Systems Review of systems:: pertinent systems reviewed and negative unless documented below *Genitourinary Genitourinary: Reports abnormal vaginal bleeding and Reports pelvic pain Exam Data for Last 24 hours Vital signs and Labs for Last 24 Hours: Temp Pulse Resp BP Pulse Ox O2 Del Method 98.0 F 77 16 105/58 L 98 Room Air 11/02/23 04:56 11/02/23 04:56 11/02/23 04:56 11/02/23 04:56 11/02/23 04:56 11/02/23 07:15 Laboratory Results - last 24 hr 11/02/23 04:05: WBC 10.5 D, RBC 4.45, Hgb 12.3, Hct 39.3, MCV 88.2, MCH 27.5, MCHC 31.2 L, RDW 14.1, Plt Count 291, MPV 8.2, Neut % (Auto) 80.1 H, Lymph % (Auto) 13.2, [place] % (Auto) 4.3, Eos % (Auto) 1.7, Baso % (Auto) 0.7, Neut # (Auto) 8.4 H, Lymph # (Auto) 1.4, [place] # (Auto) 0.5, Eos # (Auto) 0.2, Baso # (Auto) 0.1, PT 10.9, INR 0.97, Sodium 137, Potassium 3.3 L, Chloride 107, Carbon Dioxide 21 L, Anion Gap 12.3, BUN 4 L D, Creatinine 0.50 L D, Estimated Creat Clear 174, Estimated GFR 147, Est GFR ( Amer) 178 D, Glucose 108 H, Calcium 9.1, Total Bilirubin 0.6, AST 28, ALT 20, Alkaline Phosphatase 82, Total Protein 7.8, Albumin 4.5, Globulin 3.3 H, Albumin/Globulin Ratio 1.4 11/02/23 06:35: WBC 8.4, RBC 4.09 L, Hgb 11.0 L D, Hct 35.9 L, MCV 87.9, MCH 26.9 L, MCHC 30.6 L, RDW 14.1, Plt Count 261, MPV 8.5, Neut % (Auto) 78.4, Lymph % (Auto) 16.0, [place] % (Auto) 4.2, Eos % (Auto) 0.7, Baso % (Auto) 0.6, Neut # (Auto) 6.6, Lymph # (Auto) 1.3, [place] # (Auto) 0.4, Eos # (Auto) 0.1, Baso # (Auto) 0.1, HCG, Quant 29905 H I & O for Last 24 hours: Intake & Output 10/30/23 10/31/23 11/01/23 11/02/23 23:59 23:59 23:59 23:59 Weight 145 lb 0.004 oz Constitutional Constitutional: no acute distress and cooperative *Routine HEENT Exam Head: Present normocephalic and atraumatic Eye: Absent conjunctivae pink ENT: Present mucous membranes moist *Routine Neck Exam Neck: Present full ROM *Routine Respiratory Exam Respiratory: Present CTA bilaterally and normal respiratory effort *Routine Cardiovascular Exam Cardiovascular: Present RRR *Routine Abdominal Exam Abdominal: Present soft; Absent tenderness or distended *Routine Rectal Exam Rectal:: deferred *Routine Genitalia Exam Genitalia:: deferred *Routine Extremities Exam Extremities: Present full ROM; Absent edema or calf tenderness *Routine Neurological Exam Neurological: Present alert, moving all extremities and normal speech Routine Psychiatric Exam Psychiatric: Present normal affect and cooperative Meds Home Medications and Allergies Home Medications ?Medication ?Instructions ?Recorded ?Confirmed ?Type cetirizine 10 mg tablet (Zyrtec) 10 mg PO DAILY 01/25/23 11/02/23 History inositol 500 mg tablet 3,000 mg PO BID Anxiety 01/25/23 11/02/23 History vitamin K2 100 mcg capsule 100 mcg PO DAILY 01/25/23 11/02/23 History [id number] 1 mg 1 tab PO DAILY 11/02/23 11/02/23 History tablet New Prescriptions to Start Prescriptions: Allergies Allergy/AdvReac Type Severity Reaction Status Date / Time No Known Allergies Allergy Verified 11/02/23 05:09 Hospital Course Hospital Course Hospital Course: Mrs Yue Leugn is a very pleasant 28 yo at 7w6d admitted to [facility] L&D for observation for vaginal bleeding in early . LMP 09/08/23. She star alirio spotting on Thursday, 10/30. She went to the ED yesterday afternoon secondary to increased light bleeding and cramping. Beta hcg quant 27,000; pelvic ultrasound demonstrated SIUP at 6w2d, no yolk sac or FHR noted. She was discharged home with follow-up. However, bleeding and cramping increased around 2200 last night, 11/01/23. She returned to the ED. Hgb decreased to 12.3 from 13.5. She had mild tachycardia, BP normotensive. No fever/chills, chest pain or shortness of breath. No lightheadedness/dizziness. Her and her have been wanting to get but not actively trying but not preventing. She is paying attention to her body and focusing more on natural family planning. She is not on hormonal contraception. She has history of psoriatic arthritis but stopped all medicine at the beginning of 2023. She is following with a Meteorological Equipment Repairer and is successfully controlling her symptoms. She is taking a PNV. ABO RH: A positive. She admits since admission a few hours ago bleeding has slowed down and cramping has almost completely resolved. Hgb this morning 11.0. Vital signs stable, HR normal, afebrile. Repeat pelvic ultrasound this morning demonstrated absence of intrauterine gestational sac and embryo with clot in lower uterine segment. Repeat beta hcg quant decreased to 14,103. Findings consistent with SAB. Yue is doing okay. Discussed suction D&C vs expectant management. She would like to proceed with expectant management. Discharged home with follow-up on 11/06/23 or sooner if needed. Results Data Completed and Pending Labs on day of discharge: Labs from last 24 hours 11/02/23 11/02/23 06:35 04:05 WBC 8.4 10.5 D RBC 4.09 L 4.45 Hgb 11.0 L D 12.3 Hct 35.9 L 39.3 MCV 87.9 88.2 MCH 26.9 L 27.5 MCHC 30.6 L 31.2 L RDW 14.1 14.1 Plt Count 261 291 MPV 8.5 8.2 Neut % (Auto) 78.4 80.1 H Lymph % (Auto) 16.0 13.2 [place] % (Auto) 4.2 4.3 Eos % (Auto) 0.7 1.7 Baso % (Auto) 0.6 0.7 Neut # (Auto) 6.6 8.4 H Lymph # (Auto) 1.3 1.4 [place] # (Auto) 0.4 0.5 Eos # (Auto) 0.1 0.2 Baso # (Auto) 0.1 0.1 PT 10.9 INR 0.97 Sodium 137 Potassium 3.3 L Chloride 107 Carbon Dioxide 21 L Anion Gap 12.3 BUN 4 L D Creatinine 0.50 L D Estimated Creat Clear 174 Estimated GFR 147 Est GFR ( Amer) 178 D Glucose 108 H Calcium 9.1 Total Bilirubin 0.6 AST 28 ALT 20 Alkaline Phosphatase 82 Total Protein 7.8 Albumin 4.5 Globulin 3.3 H Albumin/Globulin Ratio 1.4 HCG, Quant [id number] H DS: Diagnosis Discharge Diagnosis (1) Spontaneous miscarriage: Status: Acute Code(s): O03.9 - Complete or unspecified spontaneous without complication (2) Vaginal bleeding affecting early : Status: Acute Code(s): O20.9 - Hemorrhage in early , unspecified Discharge Plan Disposition Patient Disposition: Home, Self-Care Condition: Good Follow up Plan Follow up with: Mary Jane Tabares DO [Staff Physician] - 11/06/23 10:15 am Prescriptions/Medication Reconciliation: Continued cetirizine [Zyrtec] 10 mg Tablet 10 mg PO DAILY inositol 500 mg Tablet 3,000 mg PO BID vitamin K2 100 mcg Capsule 100 mcg PO DAILY [id number] 1 mg Tablet 1 tab PO DAILY Problem Reconciliation Problems Reviewed?: Yes Patient Discharge Instructions ACTIVITY: Limited activity DIET: continue same diet and regular diet Patient Instructions: Dealing With Miscarriage, DI for Miscarriage Print Language: Spanish Providers Primary Care Provider: Provider,Referral Admit Provider: Mary Jane Tabaers Attending Provider: Mary Jane Tabares
[2023-11-02 08:45] VITALS: BP 112/60; PULSE 83; RESP 20; TEMP 36.6; O2SAT 100
--- NOTE | 2023-11-02 09:08 | PC.NURSE ---
Discharge education provided to patient and spouse. Questions encouraged and answered. Pt. v/u.
== END 2023-11-02 04:48 | disposition admitted as inpatient to this hospital (09) ==
LOC: ER 03:53 → OB 04:29
PROVIDERS: Emergency Provider Emergency Medicine; Visit Provider Obstetrics & Gynecology
DX: O20.0 Threatened abortion (principal); E87.6 Hypokalemia; Z3A.01 Less than 8 weeks gestation of pregnancy
CPT/HCPCS: 36415; 76817; 80053; 84702; 85025; 85610; 96360; 99285; G0378; J7120

== ENCOUNTER 2023-11-13 13:47 | Outpatient (CLI) | payer BC, SELFPAY ==
[2023-11-13 15:20] LABS: HCG,Quantitative 195 mIU/ml (0-5.42)
== END 2023-11-13 23:59 | disposition home or self-care (01) ==
LOC: LAB 13:48
PROVIDERS: Visit Provider Obstetrics & Gynecology
DX: Z34.90 Encounter for supervision of normal pregnancy, unspecified, unspecified trimester (principal)
CPT/HCPCS: 36415; 84702

== ENCOUNTER 2023-11-21 10:43 | Outpatient (CLI) | payer BC, SELFPAY ==
[2023-11-21 12:25] LABS: HCG,Quantitative 35 mIU/ml (0-5.42)
== END 2023-11-21 23:59 | disposition home or self-care (01) ==
PROVIDERS: Visit Provider Obstetrics & Gynecology
DX: Z34.90 Encounter for supervision of normal pregnancy, unspecified, unspecified trimester (principal)
CPT/HCPCS: 36415; 84702

== ENCOUNTER 2024-07-20 08:02 | Emergency (ER) | payer BC, SELFPAY ==
[2024-07-20] VITALS (12 sets, daily range): BP systolic 108–140; BP diastolic 69–98; PULSE 63–96; RESP 16; TEMP 36.6–36.7; O2SAT 96–100; BMI 24.2
--- NOTE | 2024-07-20 08:24 | PC.NURSE ---
dr richards at bedside
--- NOTE | 2024-07-20 08:39 | PC.NURSE ---
assisted to br for ua
--- NOTE | 2024-07-20 08:40 | ED_ITS ---
Discharge Plan Disposition Patient Disposition: Home, Self-Care Condition: Good Prescriptions Prescriptions: New prednisone 20 mg tablet 40 mg PO DAILY 4 Days Qty: 8 0RF Rx Instructions: Start 07/21/2024 diazepam [Valium] 5 mg tablet 5 mg PO Q8H PRN (Reason: muscle spasm) Qty: 5 0RF No Action cetirizine [Zyrtec] 10 mg Tablet 10 mg PO DAILY inositol 500 mg Tablet 3,000 mg PO BID [id number] 1 mg Tablet 1 tab PO DAILY Referrals Follow up/Referrals: Javier Venegas DO [Staff Physician] - See instructions Provider,Referral, [Primary Care Provider] - See instructions Activity Restrictions/Add. Instructions Additional Instructions/Restrictions: You were evaluated in the emergency department today. Please vegetable picker your prescriptions at the pharmacy and take them as prescribed. You may also take Tylenol and ibuprofen every 4-6 hours as needed for pain as well. Use caution when taking Valium, as it can be sedating. It is a strong muscle relaxer. Do not drive or operate heavy machinery while taking it. Follow-up closely with your primary care provider for reassessment. Return to the emergency department for new or worsening symptoms. Clinical Impressions Clinical Impression: Low back pain Stand Alone Forms Stand Alone Forms: Work/School Release Instructions Patient Instructions: DI for Low Back Pain, DI Sacroiliac Joint Dysfunction Print Language Print Language: [place] Discharge ED Provider: Jesi Oh General Adult HPI General Chief complaint: Back Pain/Injury Stated complaint: pain in lower back x 5 days Time Seen by Provider: 07/20/24 08:08 Mode of Arrival: Ambulatory Source of Information: Patient Description of Symptoms (Recalled from ER Triage Doc. by RN): patient states she has been having lower back pain radiating to her hips for 5 days. she denies any injuries History of Present Illness HPI narrative: This patient is a 28-year-old female with a history of psoriatic arthritis presenting to the emergency department for evaluation of concern for low back pain radiating to both hips for the last 5 days. No falls or injuries noted. She notes that she does have a history of having low back pain with sciatica in the past, but this feels worse/different. She has taken Excedrin, Tylenol, and aspirin at home without good relief. She also has used topical lidocaine patch and another topical medication with temporary improvement, however the pain returns. No fevers, abdominal pain, nausea, vomiting, dysuria, urinary frequency, urinary urgency, saddle anesthesia, incontinence, numbness, tingling, or other concerns. No history of drug use. Related Data Home Medications ?Medication ?Instructions ?Recorded ?Confirmed cetirizine 10 mg tablet (Zyrtec) 10 mg PO DAILY 01/25/23 11/13/23 inositol 500 mg tablet 3,000 mg PO BID Anxiety 01/25/23 11/13/23 [id number] 1 mg 1 tab PO DAILY 11/02/23 11/13/23 tablet Previous Rx's ?Medication ?Instructions ?Recorded diazepam 5 mg tablet (Valium) 5 mg PO Q8H PRN muscle spasm #5 07/20/24 tabs prednisone 20 mg tablet 40 mg (2 x 20 mg) PO DAILY 4 days 07/20/24 #8 tabs Allergies Allergy/AdvReac Type Severity Reaction Status Date / Time No Known Allergies Allergy Verified 11/13/23 13:22 [facility] Disclaimer: The information contained in this section may have been updated after the patient was seen, as this information can be updated by other users. 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 Psoriatic arthritis Vasculitis Spontaneous miscarriage Anxiety Migraine Surgical History H/O lateral meniscus repair of left knee History of wisdom tooth extraction History of appendectomy Family History Other No significant family history Social History Smoking Status: Never smoker alcohol intake: never current occupational status: employed Travel in the last 8 weeks?: Inside the [place] Have you lived/traveled outside US in past 30 days?: No Contact w/someone who lives/traveled outside US past 30 days?: No Exposure to someone with infectious disease in past 14 days?: No Do you have a fever (greater than 100.4 F or 38 C)?: No Have you tested positive for COVID-19?: No Exposed to someone with COVID-19 in past 14 days?: No Do you have a sore throat?: No Do you have a cough?: No Do you have any weakness?: No Do you have any diarrhea?: No Are you experiencing any unusual bleeding?: No Do you have any muscle aches/pain?: Yes Do you have any abdominal pain?: No Are you experiencing loss of taste or smell?: No Other 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 Have you received the Flu Vaccine for this season: No Have you received the Pneumonia Vaccine: No ROS Obtained: Yes All systems reviewed & no additional complaints except as documented Physical Exam General General appearance: alert and in no apparent distress Head Head exam: atraumatic and normocephalic Eye Eye exam: Present normal appearance, PERRL and EOMI ENT ENT exam: Present normal exam, normal oropharynx, mucous membranes moist and normal external ear exam Neck Neck exam: Present normal inspection, full ROM and trachea midline; Absent tenderness Chest Chest inspection: Present normal inspection and symmetric chest wall rise; Absent tenderness Respiratory Respiratory exam: Present normal lung sounds bilaterally; Absent respiratory distress, wheezes, stridor or accessory muscle use Cardiovascular Cardiovascular exam: Present regular rate and normal rhythm Abdominal Exam Abdominal exam: Present soft; Absent distention, tenderness or guarding Extremities Exam Extremities exam: Present normal inspection, full ROM and normal capillary refill; Absent tenderness or edema Back Exam Back exam: Present full ROM and tenderness Back 1 view image: 2 1. TTP Neurological Exam Neurological exam: Present alert, oriented X3, CN II-XII intact and normal gait; Absent motor sensory deficit Psychiatric Psychiatric exam: Present normal affect and normal mood Skin Skin exam: Present warm and dry Medical Decision Making Medical Records Medical records reviewed: Yes I reviewed the patient's medical records. Screening: Per USPSTF and CDC recommendations, given the prevalence of disease in our region, it is our hospital?s policy to screen for HIV and viral Hepatitis for all patients aged 18 and over and those with ongoing risk factors. Alonso Inquiry Pt receiving controlled substance: Yes Alonso was queried for this patient: Yes Risks and benefits of using a controlled substance: were discussed with pt by me Vital Signs: 07/20/24 08:09 07/20/24 08:10 07/20/24 08:20 Temperature 98 F Temperature Source Oral Pulse Rate 95 H 85 Pulse Rate [Right Radial] 87 Respiratory Rate 16 Blood Pressure 121/84 131/98 H Blood Pressure [Right Arm] 140/93 H Blood Pressure Mean [Right Arm] 108 Blood Pressure Source Blood Pressure Source [Right Arm] Automatic Cuff Blood Pressure Position Blood Pressure Position [Right Arm] Sitting 02 Sat by Pulse Oximetry 100 99 98 Oxygen Delivery Method Room Air Room Air Room Air 07/20/24 08:31 07/20/24 08:47 07/20/24 08:50 Temperature Temperature Source Pulse Rate 82 73 68 Pulse Rate [Right Radial] Respiratory Rate Blood Pressure 114/79 134/88 118/74 Blood Pressure [Right Arm] Blood Pressure Mean [Right Arm] Blood Pressure Source Blood Pressure Source [Right Arm] Blood Pressure Position Blood Pressure Position [Right Arm] 02 Sat by Pulse Oximetry 96 98 99 Oxygen Delivery Method Room Air Room Air Room Air 07/20/24 09:00 07/20/24 09:17 07/20/24 09:20 Temperature Temperature Source Pulse Rate 69 85 69 Pulse Rate [Right Radial] Respiratory Rate Blood Pressure 135/83 112/70 Blood Pressure [Right Arm] Blood Pressure Mean [Right Arm] Blood Pressure Source Blood Pressure Source [Right Arm] Blood Pressure Position Blood Pressure Position [Right Arm] 02 Sat by Pulse Oximetry 99 100 99 Oxygen Delivery Method Room Air Room Air 07/20/24 09:30 07/20/24 10:00 07/20/24 10:36 Temperature 98.1 F Temperature Source Oral Pulse Rate 82 63 96 H Pulse Rate [Right Radial] Respiratory Rate 16 Blood Pressure 124/75 108/69 L 110/75 Blood Pressure [Right Arm] Blood Pressure Mean [Right Arm] Blood Pressure Source Automatic Cuff Blood Pressure Source [Right Arm] Blood Pressure Position Sitting Blood Pressure Position [Right Arm] 02 Sat by Pulse Oximetry 97 99 Oxygen Delivery Method Room Air Room Air Room Air Lab Data Lab results reviewed: Yes I reviewed the patient's lab results. Lab Results 07/20/24 08:38: Urine Color Yellow, Urine Appearance Clear, Urine pH 6.0, Ur Specific [place] 1.010, Urine Protein Negative, Urine Glucose (UA) Negative, Urine Ketones Negative, Urine Blood Trace-i, Urine Nitrate Negative, Urine Bilirubin Negative, Urine Urobilinogen 0.2, Ur Leukocyte Esterase Trace, Urine RBC None, Urine WBC 10-20, Ur Squamous Epith Cells 20-50, Urine Bacteria Trace, Urine HCG, Qual Negative Orders (Tests/Meds): ED MEDICATIONS Discontinued Medications Generic Name Dose Route Start Last Admin Trade Name Freq PRN Reason Stop Dose Admin Ketorolac Tromethamine 30 mg 07/20/24 09:04 07/20/24 09:35 Ketorolac 30mg/Ml Vial IM 07/20/24 09:05 30 mg ONCE ONE Administration Lidocaine 1 each 07/20/24 08:35 07/20/24 08:43 Lidocaine 5% Transdermal Patch TD 07/20/24 08:36 1 each ONCE ONE Administration Methocarbamol 1,000 mg 07/20/24 08:35 07/20/24 08:43 Methocarbamol 500mg Tablet PO 07/20/24 08:36 1,000 mg ONCE ONE Administration Prednisone 40 mg 07/20/24 08:35 07/20/24 08:43 Prednisone 20mg Tab PO 07/20/24 08:36 40 mg ONCE ONE Administration ORDERS Category Date Time Status HIV Combo Stat Lab 07/20/24 08:16 Ordered Hepatitis C Ab Qual. W/ RFX Stat Lab 07/20/24 08:16 Ordered UA [Urinalysis and Microscopic] Stat Lab 07/20/24 08:38 Completed Urine , HCG Qual. Stat Lab 07/20/24 08:38 Completed Urine Culture Stat Micro 07/20/24 08:38 Received Medical Decision Narrative: In summary, this patient is a 28-year-old female presenting to the Emergency Department for evaluation of low back pain for the last 5 days. Differential diagnoses considered include but are not limited to musculoskeletal strain/sprain, sciatica, disc herniation, ankylosing spondylitis, sacroiliitis. Ruling out the most morbid conditions drove assessment. It should be noted patient's history includes psoriatic arthritis which may or may not be at goal therapy. This complicates all aspects of care by increasing patient's risk for morbidity. On exam, the patient is neurologically intact in her lower extremities with tenderness to palpation over her SI joints. Abdominal exam is benign. Vitals are reassuring on cardiac telemetry. Workup included urinalysis and urine test. 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 Patient agreeable to trial of medications for symptomatic improvement of likely musculoskeletal pain. She was given oral prednisone, Robaxin, and a topical Lidoderm patch for symptomatic improvement. On reassessment, she had some improvement and remains neurologically intact in her lower extremities but she is still having pain. She is agreeable with discharge home with trial of steroid anti-inflammatories as well as Valium as a muscle relaxer. Alonso was queried. Patient was given strict return precautions and instructions for close follow-up should she continue to have pain. I provided her with information for PCP as well as with orthopedics. Critical Care Critical Care Time Critical Care Time: No
[2024-07-20] MEDS: LIDOCAINE 5% TRANSDERMAL PATCH 1 EACH TD (08:43)
[2024-07-20] MEDS: predniSONE 20MG TAB 40 MG PO (08:43)
[2024-07-20] MEDS: METHOCARBAMOL 500MG TABLET 1000 MG PO (08:43)
[2024-07-20 08:44] LABS: Microscopic, Urine URINE MICROSCOPIC (MICROSCOPIC)
[2024-07-20 08:54] LABS: Appearance,Urine CLEAR (Clear); Bilirubin,Urine Negative (Negative); Blood, Urine TRACE-I (Negative); Color,Urine YELLOW (Yellow); Glucose,Urine (UA) Negative (Negative); Ketones,Urine Negative (Negative); Leukocyte Esterase,Urine TRACE (Negative); Nitrate,Urine Negative (Negative); Protein,Urine Negative (Negative); Urobilinogen,Urine 0.2 EU/dl (0.2)
[2024-07-20 08:58] LABS: Urine Pregnancy, HCG Qual. Negative (Negative)
[2024-07-20] MEDS: KETOROLAC 30MG/ML VIAL 30 MG IM (09:35)
[2024-07-20 10:13] LABS: Bacteria,Urine Trace /lpf; Squamous Epithelial Cell,Urine 20-50 #/hpf (0-5)
== END 2024-07-20 10:41 | disposition home or self-care (01) ==
PROVIDERS: Emergency Provider Emergency Medicine
DX: M54.50 Low back pain, unspecified (principal)
CPT/HCPCS: 81001; 81025; 87086; 96372; 99283; J1885